=== PATIENT | female | born 1950 | race Caucasian/White ===

== ENCOUNTER → 2016-05-28 | Outpatient (CLI) | payer MEDICARE ==
[~2016-05-28] MED LIST: CALC600T19 PO; CEFD300C PO; CETI10TA20 PO; CPR500T PO; DOXY100C2 PO; FLUT9.9S NSEACH; HYDR-3702 PO; MAGN250T PO; MAGN800O PO; MULT1TAB63 PO; NAPR1TAB25 PO; NAPR220T76 PO; OMEG-7 PO; ONDA4TAB11 PO; ONDA4TAB8 PO; OXYC1TAB7 PO
[2016-05-28 12:17] LABS: MEAN CORPUSCULAR HEMOGLOBIN 29.7 PG (26.0-34.0); MEAN CORPUSCULAR HGB CONC 33.9 g/dL (31.0-37.0); MEAN CORPUSCULAR VOLUME 88 FL (80-100); MEAN PLATELET VOLUME 10.5 FL (6.0-9.5); PLATELET COUNT 90 10^3uL (150-450); WHITE BLOOD COUNT 5.85 10^3uL (4.0-11.0)
[2016-05-28 12:47] LABS: BAND NEUTROPHILS % 18 % (0-6); EOSINOPHILS % 2 % (0-4); LYMPHOCYTES # 1.3 #; MONOCYTES # 0.5 #; MONOCYTES % 10 % (3-11); SEGMENTED NEUTROPHILS % 48 % (51-67); TOTAL CELLS COUNTED 100
[2016-05-28 12:48] LABS: ALBUMIN 3.3 g/dL (3.4-5.0); ANION GAP 15.8 MEQ/L (3-15); ANISOCYTOSIS SLIGHT; CALCULATED IONIZED CALCIUM 4.7 mg/dL (3.8-4.6); MAGNESIUM* 1.9 mg/dL (1.6-2.3); MICROCYTOSIS SLIGHT; PHOSPHORUS 3.6 mg/dL (2.4-4.9); POIKILOCYTOSIS SLIGHT; RBC MORPH SEE REFERENCE (NORMAL); TOTAL PROTEIN 6.1 g/dL (6.4-8.5)
== END ==
LOC: RAD 11:56
PROVIDERS: ATTEND Internal Medicine Hematology & Oncology
DX: C34.2 Malignant neoplasm of middle lobe, bronchus or lung (principal)
CPT/HCPCS: 36415; 80053; 83615; 83735; 84100; 85007; 85027

== ENCOUNTER 2016-06-01 18:05 | Inpatient (IN) | payer MEDICARE ==
[~2016-06-01] VITALS: Ht 152.4 cm; Wt 63.9 kg
[~2016-06-01 18:05] MED LIST changes: -FLUT9.9S NSEACH; -MAGN800O PO; -NAPR1TAB25 PO; -NAPR220T76 PO; -OXYC1TAB7 PO
[2016-06-01] MEDS ORDERED: SODIUM CHLORIDE 250 ML IV PRN (18:40)
[2016-06-01] MEDS ORDERED: SODIUM CHLORIDE FLUSH 10 ML SYR IV PRN (18:40)
[2016-06-01] MEDS ORDERED: HYDROmorphone 1 MG/ML (DILAUDID) SYRINGE IV ONE (18:40)
[2016-06-01] MEDS ORDERED: NS IV 500 ML 500 ML IV SCH (18:40)
[2016-06-01] MEDS ORDERED: SODIUM CHLORIDE FLUSH 3 ML SYR IV PRN (18:40)
[2016-06-01] MEDS ORDERED: ONDANSETRON 2 MG/ML (Z0FRAN) 2 ML VIAL IV ONE (18:40)
[2016-06-01 19:05] LABS: MEAN CORPUSCULAR HGB CONC 33.3 g/dL (31.0-37.0); MEAN CORPUSCULAR VOLUME 87 FL (80-100); MEAN PLATELET VOLUME 10.5 FL (6.0-9.5); PLATELET COUNT 89 10^3uL (150-450)
[2016-06-01 19:11] LABS: ALBUMIN 3.2 g/dL (3.4-5.0); ALKALINE PHOSPHATASE 256 U/L (38-126); ANION GAP 14.2 MEQ/L (3-15); BUN/CREATININE RATIO 29 (10-20); CALCULATED IONIZED CALCIUM 4.4 mg/dL (3.8-4.6); CREATINE KINASE 77 U/L (30-135); MAGNESIUM* 2.1 mg/dL (1.6-2.3); TOTAL PROTEIN 6.4 g/dL (6.4-8.5)
[2016-06-01 19:14] LABS: BAND NEUTROPHILS % 16 % (0-6); EOSINOPHILS % 1 % (0-4); LYMPHOCYTES # 0.8 #; MONOCYTES # 0.4 #; MONOCYTES % 11 % (3-11); RBC MORPH NORMAL (NORMAL); SEGMENTED NEUTROPHILS % 46 % (51-67); TOTAL CELLS COUNTED 100
--- NOTE | 2016-06-01 20:46 | History and Physical (E) ---
History & Physical PCP: Duran Gutierrez MD CC: Weakness HPI Natty Thompson is a 66 year old female admitted from ED 06/01 where she presented from home for concern of weakness. She has quite complex recent medical history including perihilar lymphadenopathy on the right and pleural effusion and she is s/p CT-guided biopsy at [facility] in [place] . Pathology is still pending. She has been unwell since early April and his been undergoing outpatient oncology workup including the biopsy as noted. Has a had a PET scan but doesn't know those results. Was supposed to have MRI brain but didn't tolerate lying flat. Was brought to ED because of marked weakness. Vitals were notable for SpO2 88% RA so she was placed on oxygen. CBC showed WBC 4.10 but with 46% N, 16% B, 20% L, 11% M, 1% E, 1% B. Hgb was quite low at 7.2. Plt also low at 89. On chemistry, CRP high at 27. Pro-BNP 1590. CXR showed persistence of right pleural effusion. Pathology from biopsy is pending in [place]. She has seen Dr. Hood for outpatient oncology workup and is due to see him in clinic again 06/04. In ED she was sigven NS bolus, ondansetron, hydromorphone, then ED physician called asking for admit. She was awake, interactive, oriented. Pale. and patient provide history as outlined above. says weakness was the primary reason for bringing her to hospital. Several family members have had URI symptoms and patient has had some upper nasal congestion. Some cough, sometime productive of mucus. She has had no fever. No chills. No night sweats. No rash. PMH * UTI, April 2016 * Tobacco abuse * Chronic sinus congestion * OA * Pleural effusion PSH * Wrist surgery * Sinus surgery * T&A 1951 * Tubal ligation 1989 ALLERGIES: Please see list at end of report. HOME MEDICATIONS: Please see list at end of report. FH Parents--Mother of hepatitis C. Siblings--Brothers with heart problems, DM, and COPD. Children--Healthy. SH Tobacco--Current smoker, 1/2 ppd x 50 years. Alcohol--Denies Living--Lives at home with . 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 ROS CONSTITUTION: Lost 10 pounds in the last few weeks. HEENT: No change in vision or hearing. No sores in mouth, sore throat. Dry mouth. CV: No chest pain, palpitations. PULM: Per HPI, exam. GI: Poor appetite. Constipation. No diarrhea. : No dysuria. No blood in urine. MS: Complains of pain "all over." NEURO: Transient lower jaw numbness. INTEG: Pallor ENDO: No heat or cold intolerance. No polydipsia or polyuria. HEME/LYMPH: No easy bruising or bleeding. No swollen glands. PSYCH: No change in mood or behavior. OBJECTIVE Vital Signs Date Time Temp Pulse Resp B/P Pulse Ox O2 Delivery O2 Flow Rate FiO2 06/01/16 19:20 95 OxyMask 6 06/01/16 18:10 97.4 118 40 132/65 GEN: Awake, alert, oriented, mild respiratory distress. Pallor. HEENT: EOMI, clear sclerae, dry oral mucosa. CV: Mildly tachy, regular, ST on tele. LUNGS: Diminished right base. Faint, intermittent rales, right base. ABD: Soft, NT/ND with normal bowel sounds. EXTR: No C/C/E. Normal peripheral pulses. INTEG: Pallor NEURO: No focal motor neuro deficit. LABS Laboratory Results-14 Days 06/01/16 18:50: Absolute Band Neutrophils 0.6, Activated Partial Thromboplast Time 29.6, Alanine Aminotransferase (ALT/SGPT) 33, Albumin 3.2L, Albumin/Globulin Ratio 1.000L, Alkaline Phosphatase 256H, Anion Gap 14.2, Aspartate Amino Transf (AST/ SGOT) 55H, BUN/Creatinine Ratio 29H, Band Neutrophils % 16H, Basophils # (Auto) , Basophils # (Manual) 0.0, Basophils % (Manual) 1, Basophils (%) (Auto) , Blood Morphology Comment Normal, Blood Urea Nitrogen 21H, C-Reactive Protein 27.00H, Calcium Level 9.5, Calcium/Ionized Calcium Ratio 4.4, Calculated Osmolality 264L, Carbon Dioxide Level 24, Chloride Level 100, Creatine Kinase MB 1.3, Creatinine 0.73, Differential Total Cells Counted 100, Eosinophils # 0.0 , Eosinophils # (Auto) , Eosinophils % (Manual) 1, Eosinophils (%) (Auto) , Estimat Glomerular Filtration Rate 95.9, Estimated GFR (Non- 79.3, Glucose Level 148#H, Hematocrit 21.60L, Hemoglobin 7.2L, Lymphocytes # 0.8 , Lymphocytes # (Auto) , Lymphocytes % (Manual) 20, Lymphocytes (%) (Auto) , Magnesium Level 2.1, Mean Corpuscular Hemoglobin 29.0, Mean Corpuscular Hemoglobin Concent 33.3, Mean Corpuscular Volume 87, Mean Platelet Volume 10.5H , Metamyelocytes % 4H, Monocytes # 0.4, Monocytes # (Auto) , Monocytes % (Manual ) 11, Monocytes (%) (Auto) , Myelocytes 1, ET-Mxe-R-Type Natriuretic Peptide 1590H, Neutrophils # 1.9, Neutrophils # (Auto) , Neutrophils (%) (Auto) , Platelet Count 89L, Potassium Level 4.5, Prothromb Time International Ratio 1.4 , Prothrombin Time 15.5H, Red Blood Count 2.48L, Red Cell Distribution Width 13.4, Segmented Neutrophils % 46L, Sodium Level 134L, Total Bilirubin 0.9, Total Creatine Kinase 77, Total Protein 6.4, Troponin I < 0.012, White Blood Count 4.10 MICRO 06/01 Blood culture PENDING IMAGING 06/01/2016 CXR: Persistence of right pleural effusion with likely atelectasis, vs. infiltrate. ASSESSMENT Natty Thompson is a 66 year old female admitted from ED 06/01 with acute respiratory distress and SIRS/sepsis attributed to possible HCAP. She has marked anemia with fatigue and tachycardia noted. She has thrombocytopenia and low normal WBC and with right pleural effusion, there has been concern for underlying malignancy. She is already s/p CT-guided lung lymph node biopsy but results are pending. PLAN * SIRS/Sepsis: Attributed to possible HCAP. * Acute Respiratory Distress: Oxygen protocol. IS. Consider therapeutic thoracentesis. * HCAP: On the basis of cough, pleural effusion, dyspnea, bandemia, abnormal CXR. Blood culture pending. Sputum pending sample. IS. Guaifenesin. Empiric cefepime, vanco. * Right Pleural Effusion: S/P CT guided biopsy 05/30 at [place]. Obtain pathology. * Dehydration: On the basis of labs, exam. NS bolus given in ED. Additional 1 L maintenance. Check UA. I&O, daily weight. * Pancytopenia: Suspect cancer. Workup already in progress. Already referred to Dr. Hood and has appointment 06/04. * Anemia: Check stool for occult blood. Transfuse for symptomatic anemia. * Deconditioning: PT/OT eval and treat. * F/E/N: General diet. IVF as above. Peripheral IV. * Prophylaxis: SCDs. Defer enoxaparin due to anemia. * Code Status: Full * Dispo: Inpatient. Expect 3 day stay minimum. CHRONIC ISSUES Home medications to be reviewed: * Chronic Pain: [place] * Seasonal allergies: Loratadine (sub for cetirizine) * HLD: [place] 3 Allergies/Home Medications Allergies: Coded Allergies: cephalexin (Verified Allergy, Unknown, 05/13/16) Reported Home Medications Scheduled Calcium Carbonate (Calcium Carbonate) 600 MG PO HS (Reported) Cefdinir (Cefdinir) 300 MG PO BID Doxycycline Hyclate (Doxycycline Hyclate) 100 MG PO BID Magnesium (Magnesium) 250 MG PO HS (Reported) Multivits,Ca,Minerals/Iron/Fa (Thera-M) 1 TAB PO DAILY@1500 (Reported) [place]-3 Fatty Acids/Fish Oil (Fish Oil 1,000 mg Softgel) 1 CAP PO DAILY@1500 ( Reported) Ondansetron (Ondansetron ODT) 4 MG PO Q6H Scheduled PRN Cetirizine HCl (Zyrtec) 10 MG PO DAILY PRN PRN SEASONAL ALLERGIES (Reported) Hydrocodone Bit/Acetaminophen (Hydrocodon-Acetaminophen 5-325) 1-2 EACH PO Q6H PRN PRN PAIN Copies to: End of Report . OMID HUMMEL MD Jun 01, 2016 20:46
[2016-06-01] MEDS ORDERED: VANCOMYCIN 1,000 MG in SODIUM CHLORIDE 250 ML IV ONE (21:10)
[2016-06-01] MEDS ORDERED: MAGNESIUM HYDROXIDE 80MG/ML (MILK OF MAGNESIA) 30 ML UDC PO PRN (21:10)
[2016-06-01] MEDS ORDERED: SODIUM CHLORIDE 250 ML IV ONE (21:10)
[2016-06-01] MEDS ORDERED: CALCIUM CARBONATE CHEWABLE 300 MG (TUMS) TABLET PO PRN (21:10)
[2016-06-01] MEDS ORDERED: VANCOMYCIN PHARMACY PROTOCOL IV SCH ×2 (21:10)
[2016-06-01] MEDS ORDERED: PROMETHAZINE HCL INJ 12.5 MG in SODIUM CHLORIDE 25 ML IV PRN (21:10)
[2016-06-01] MEDS ORDERED: ACETAMINOPHEN 325 MG TAB (TYLENOL) PO PRN (21:10)
[2016-06-01] MEDS ORDERED: DOCUSATE SODIUM 100 MG (COLACE) CAP PO PRN (21:10)
[2016-06-01] MEDS ORDERED: IBUPROFEN 600 MG (MOTRIN) TAB PO PRN (21:10)
[2016-06-01] MEDS ORDERED: MAG HYDROX/AL HYDROX/SIMETH 200-200-20/5 ML (MAG-AL PLUS) 30 ML UDC PO PRN (21:10)
[2016-06-01] MEDS ORDERED: POLYETHYLENE GLYCOL 17 GM (MIRALAX) PACKET PO PRN (21:10)
[2016-06-01] MEDS ORDERED: ONDANSETRON 2 MG/ML (Z0FRAN) 2 ML VIAL IV PRN (21:10)
[2016-06-01] MEDS ORDERED: CEFEPIME 2,000 MG in SODIUM CHLORIDE 100 ML IV SCH (21:20)
--- NOTE | 2016-06-01 21:25 | NUR ---
Pt arrived to room 317 via wheelchair, accompanied by and PLATER HELPER. Pt is alert and oriented x 4, Resp are slightly labored and pt is using accessory muscles, currently on 6LPM via Mask to keep sats greater than 90%. SL to right backfiller has no redness, swelling, or s/s of infection noted at this time. Pt will be receiving blood when type and cross in done. Lab here to draw blood cultures. Pt is oriented to room, call light in reach, will continue to monitor,
[2016-06-01] MEDS ORDERED: SODIUM CHLORIDE 500 ML ONE (21:47)
[2016-06-01] MEDS ORDERED: PIPERACILLIN/TAZOBACTAM 4.5 GM (ZOSYN) VIAL IV ONE (21:47)
[2016-06-01] MEDS ORDERED: SODIUM CHLORIDE 100 ML ONE (21:48)
[2016-06-01] MEDS ORDERED: VANCOMYCIN 1000 MG VIAL ONE (21:48)
[2016-06-01 21:49] VITALS: BP 135/82
[2016-06-01] MEDS ORDERED: SODIUM CHLORIDE FLUSH 10 ML ONE (21:49)
[2016-06-01 21:55] VITALS: BP 135/82
[2016-06-01 22:00] LABS: BILIRUBIN,URINE Negative (Negative); CLARITY,URINE Cloudy; GLUCOSE, URINE (UA) Negative (Negative); LEUKOCYTE ESTERASE ,URINE Negative (Negative); PH,URINE 5.5 (5.0 - 8.0); UROBILINOGEN,URINE 0.2 mg/dL (0.2-1.0)
[2016-06-01] MEDS: PIPERACILLIN/TAZOBACTAM 4.5 GM in SODIUM CHLORIDE 100 ML IV SCH (22:00)
[2016-06-01 22:03] LABS: COLOR,URINE Dark Yellow
[2016-06-01 22:07] LABS: RBC,URINE None Seen /HPF; URINE CENTRIFUGED VOLUME 12 mL
[2016-06-02] VITALS (13 sets, daily range): BP systolic 115–134; BP diastolic 64–78
[2016-06-02] MEDS: HYDROcodone/APAP 5 MG/325 MG (NORCO) TAB PO PRN ×3 (02:45→18:38)
[2016-06-02] MEDS ORDERED: ACETAMINOPHEN 325 MG TAB (TYLENOL) PO PRN (03:10)
[2016-06-02] MEDS ORDERED: PROMETHAZINE HCL INJ 12.5 MG in SODIUM CHLORIDE 25 ML IV PRN (03:10)
[2016-06-02] MEDS ORDERED: MAG HYDROX/AL HYDROX/SIMETH 200-200-20/5 ML (MAG-AL PLUS) 30 ML UDC PO PRN (03:10)
[2016-06-02] MEDS ORDERED: ONDANSETRON 2 MG/ML (Z0FRAN) 2 ML VIAL IV PRN (03:10)
[2016-06-02] MEDS ORDERED: IBUPROFEN 600 MG (MOTRIN) TAB PO PRN (03:10)
--- NOTE | 2016-06-02 03:45 | NUR ---
0025-Started 2nd IV to LFA, 20g with minimal discomfort to pt. IV fluids and antibiotics started. 0100-Blood is started, checked blood with Tamanna Eric RN [id number]. 0115-Pt monitored every 5min for 15 min. No s/s of reaction noted at this time. Increased blood infusion to 150mls/hr. 0235-Pt up to restroom and reports generalized discomfort, rates 5/10, gave 1 tab PO of Lortab 5/325mg for pain. 0315-Blood is finished infusing, do not have second unit of blood in house. VS stayed WNL for pt, no s/s of reaction noted at this time. SL IV to [facility].
[2016-06-02] MEDS ORDERED: CALCIUM CARBONATE CHEWABLE 300 MG (TUMS) TABLET PO PRN (05:10)
[2016-06-02 06:30] LABS: MEAN CORPUSCULAR HEMOGLOBIN 29.3 PG (26.0-34.0); MEAN CORPUSCULAR HGB CONC 32.9 g/dL (31.0-37.0); MEAN CORPUSCULAR VOLUME 89 FL (80-100); MEAN PLATELET VOLUME 11.3 FL (6.0-9.5); PLATELET COUNT 79 10^3uL (150-450); WHITE BLOOD COUNT 3.54 10^3uL (4.0-11.0)
[2016-06-02] MEDS: PIPERACILLIN/TAZOBACTAM 4.5 GM in SODIUM CHLORIDE 100 ML IV SCH ×3 (06:30→21:32)
[2016-06-02 06:56] LABS: EOSINOPHILS % 4 % (0-4); LYMPHOCYTES # 0.8 #; MONOCYTES # 0.3 #; MONOCYTES % 11 % (3-11)
[2016-06-02 06:57] LABS: BAND NEUTROPHILS % 7 % (0-6); NUCLEATED RED BLOOD CELLS 1; POLYCHROMASIA SLIGHT; RBC MORPH SEE REFERENCE (NORMAL); SEGMENTED NEUTROPHILS % 51 % (51-67); TOTAL CELLS COUNTED 100
[2016-06-02 07:01] LABS: ALBUMIN 2.8 g/dL (3.4-5.0); ANION GAP 14.6 MEQ/L (3-15); PHOSPHORUS 4.4 mg/dL (2.4-4.9)
--- NOTE | 2016-06-02 08:09 | NUR ---
Pt titrated from 5L oxymask sats at 99% to 4L nc for bfst meal. Karlene RT notified. Will cont to monitor patient. Educated her to let nursing know MARTINE if increased SOA or difficulty breathing.
--- NOTE | 2016-06-02 08:11 | Diagnostic Imaging Report ---
INDICATION: Weakness. COMPARISON: May 30, 2016 TECHNIQUE: Single frontal radiograph of the chest dated June 01, 2016 FINDINGS: The cardiac silhouette is stable. Moderate right basilar pleural-parenchymal opacity is present, increased from the prior examination. Left lung is clear of focal pulmonary opacity. No significant left pleural effusion. No pneumothorax. No acute osseous abnormality. IMPRESSION: Increasing moderate sized right basilar pleural-parenchymal opacity, felt to relate a combination of pleural fluid with adjacent atelectasis or infiltrate. No pneumothorax. Dictated by: Dictated on workstation # [id number]
--- NOTE | 2016-06-02 08:54 | NUR ---
Finished eating bfst- remains on 4L nc sats at 96%- patient refuses to cont wearing nasal canula, requests oxymask for comfort- Is now on 4L oxymask sats 95%.
[2016-06-02] MEDS: guaiFENesin ER 600 MG (MUCINEX) TAB PO SCH ×2 (08:57→21:31)
[2016-06-02] MEDS: LORATADINE (CLARITIN) 10 MG TAB PO SCH (08:57)
[2016-06-02] MEDS ORDERED: POLYETHYLENE GLYCOL 17 GM (MIRALAX) PACKET PO PRN (09:00)
[2016-06-02] MEDS ORDERED: DOCUSATE SODIUM 100 MG (COLACE) CAP PO PRN (09:00)
[2016-06-02] MEDS ORDERED: guaiFENesin ER 600 MG (MUCINEX) TAB PO SCH (09:00)
[2016-06-02] MEDS ORDERED: MAGNESIUM HYDROXIDE 80MG/ML (MILK OF MAGNESIA) 30 ML UDC PO PRN (09:00)
[2016-06-02] MEDS ORDERED: CEFEPIME 2,000 MG in SODIUM CHLORIDE 100 ML IV SCH (09:00)
--- NOTE | 2016-06-02 09:21 | NUR ---
Vancomycin Dosing: Pharmacy managed S: SIRS/Sepsis: Attributed to possible HCAP pneumonia, UTI. Cultures pending. Empirically treating with Pip/Tazo (allergy to cephalexin) and vancomycin. O: 66y/o F, wt = 63 kg, SCr = 0.78 CrCl = 58 ml/min A/P: Vancomycin 1000mg IV q18hr. Predicted trough of 18.4 mcg/mL for therapeutic goal of 15-20mcg/ml. Trough to be drawn before 4th dose (06-04-16 @ 0430). Will monitor and adjust if needed.
[2016-06-02] MEDS ORDERED: ALBUTEROL 0.083% NEB SOLUTION 2.5 MG/3 ML VIAL INH PRN (12:00)
--- NOTE | 2016-06-02 12:21 | Progress Note (E) ---
Progress Note SUBJECTIVE Overnight, no major issues. Afebrile. Tachycardia mostly resolved. 4 L oxy- mask. BP stable. RR 20. WBC down to 3.54 with Hgb 8.0 after 1 unit transfused. K elevated at 5.3. No hemolysis noted. Giving a low dose of kayexalate. Discussed findings, plan of care. Hoping for thoracentesis tomorrow via radiology. OBJECTIVE Vital Signs Date Time Temp Pulse Resp B/P Pulse Ox O2 Delivery O2 Flow Rate FiO2 06/02/16 11:26 98.6 102 20 130/78 95 Oxymask 06/01/16 21:55 5.00 I & O 06/01/16 06/02/16 Cumulative From/Thru 19:00 07:00 06/01/16 18:10 - 06/02/16 06:11 Intake Total 1560 ml 1560 ml Output Total 500 ml 500 ml Balance 1060 ml 1060 ml GEN: Awake, alert, oriented, mild respiratory distress but improved. Pallor improved. HEENT: EOMI, clear sclerae, dry oral mucosa. CV: Mildly tachy, regular. No significant murmur. LUNGS: Diminished right base. Faint, intermittent rales have resolved. End- expiratory wheezes bilaterally. ABD: Soft, NT/ND with normal bowel sounds. EXTR: No C/C/E. Normal peripheral pulses. INTEG: Pallor NEURO: No focal motor neuro deficit. Lab-Past 14 Days, 35 Results 06/01/16 18:50: Absolute Band Neutrophils 0.6, Activated Partial Thromboplast Time 29.6, Alanine Aminotransferase (ALT/SGPT) 33, Albumin 3.2L, Albumin/Globulin Ratio 1.000L, Alkaline Phosphatase 256H, Anion Gap 14.2, Aspartate Amino Transf (AST/ SGOT) 55H, BUN/Creatinine Ratio 29H, Band Neutrophils % 16H, Basophils # (Auto) , Basophils # (Manual) 0.0, Basophils % (Manual) 1, Basophils (%) (Auto) , Blood Morphology Comment Normal, Blood Urea Nitrogen 21H, C-Reactive Protein 27.00H, Calcium Level 9.5, Calcium/Ionized Calcium Ratio 4.4, Calculated Osmolality 264L, Carbon Dioxide Level 24, Chloride Level 100, Creatine Kinase MB 1.3, Creatinine 0.73, Differential Total Cells Counted 100, Eosinophils # 0.0 , Eosinophils # (Auto) , Eosinophils % (Manual) 1, Eosinophils (%) (Auto) , Estimat Glomerular Filtration Rate 95.9, Estimated GFR (Non- 79.3, Glucose Level 148#H, Hematocrit 21.60L, Hemoglobin 7.2L, Lymphocytes # 0.8 , Lymphocytes # (Auto) , Lymphocytes % (Manual) 20, Lymphocytes (%) (Auto) , Magnesium Level 2.1, Mean Corpuscular Hemoglobin 29.0, Mean Corpuscular Hemoglobin Concent 33.3, Mean Corpuscular Volume 87, Mean Platelet Volume 10.5H , Metamyelocytes % 4H, Monocytes # 0.4, Monocytes # (Auto) , Monocytes % (Manual ) 11, Monocytes (%) (Auto) , Myelocytes 1, VD-Pfm-I-Type Natriuretic Peptide 1590H, Neutrophils # 1.9, Neutrophils # (Auto) , Neutrophils (%) (Auto) , Platelet Count 89L, Potassium Level 4.5, Prothromb Time International Ratio 1.4 , Prothrombin Time 15.5H, Red Blood Count 2.48L, Red Cell Distribution Width 13.4, Segmented Neutrophils % 46L, Sodium Level 134L, Thyroid Stimulating Hormone (TSH) 1.23, Total Bilirubin 0.9, Total Creatine Kinase 77, Total Protein 6.4, Troponin I < 0.012, White Blood Count 4.10 06/01/16 21:30: Urine Bacteria Rare, Urine Bilirubin Negative, Urine Clarity Cloudy, Urine Collection Type Clean catch, Urine Color Dark yellow, Urine Glucose (UA) Negative, Urine Ketones Negative, Urine Leukocyte Esterase Negative, Urine Mucus 3+H, Urine Nitrite Negative, Urine Protein 1+H, Urine RBC None seen, Urine RBC (Auto) Negative, Urine Specific [place] 1.025, Urine Squamous Epithelial Cells 20-50, Urine Urobilinogen 0.2, Urine WBC 0-2, Urine pH 5.5, Volume Urine Centrifuged 12 ml 06/02/16 06:00: Absolute Band Neutrophils 0.2, Band Neutrophils % 7H, Basophils # (Auto) , Basophils # (Manual) 0.1, Basophils % (Manual) 2, Basophils (%) (Auto) , Blood Morphology Comment See reference, Differential Total Cells Counted 100, Eosinophils # 0.1, Eosinophils # (Auto) , Eosinophils % (Manual) 4, Eosinophils (%) (Auto) , Hematocrit 24.30L, Hemoglobin 8.0L, Lymphocytes # 0.8, Lymphocytes # (Auto) , Lymphocytes % (Manual) 24, Lymphocytes (%) (Auto) , Mean Corpuscular Hemoglobin 29.3, Mean Corpuscular Hemoglobin Concent 32.9, Mean Corpuscular Volume 89, Mean Platelet Volume 11.3H, Metamyelocytes % 1, Monocytes # 0.3, Monocytes # (Auto) , Monocytes % (Manual) 11, Monocytes (%) (Auto) , Neutrophils # 1.8, Neutrophils # (Auto) , Neutrophils (%) (Auto) , Platelet Count 79L, Red Blood Count 2.73L, Red Cell Distribution Width 13.9, Segmented Neutrophils % 51, White Blood Count 3.54L, Nucleated Red Blood Cells 1, Polychromasia Slight 06/02/16 06:10: Albumin 2.8L, Anion Gap 14.6, Blood Urea Nitrogen 23H, Calcium Level 9.5, Carbon Dioxide Level 21L, Chloride Level 105, Creatinine 0.78, Estimat Glomerular Filtration Rate 88.9, Estimated GFR (Non- 73.5, Glucose Level 110#, Potassium Level 5.3H, Sodium Level 135, Phosphorus Level 4.4 # MICRO 06/01 Blood culture PENDING IMAGING 06/01/16 CHEST 1 VIEW, AP/PA ONLY* INDICATION: Weakness. COMPARISON: May 30, 2016 TECHNIQUE: Single frontal radiograph of the chest dated June 01, 2016 FINDINGS: The cardiac silhouette is stable. Moderate right basilar pleural- parenchymal opacity is present, increased from the prior examination. Left lung is clear of focal pulmonary opacity. No significant left pleural effusion. No pneumothorax. No acute osseous abnormality. IMPRESSION: Increasing moderate sized right basilar pleural-parenchymal opacity, felt to relate a combination of pleural fluid with adjacent atelectasis or infiltrate. No pneumothorax. ASSESSMENT Natty Thompson is a 66 year old female admitted from ED 06/01 with acute respiratory distress and SIRS/sepsis attributed to possible HCAP. She has marked anemia with fatigue and tachycardia noted. She has thrombocytopenia and low normal WBC and with right pleural effusion, there has been concern for underlying malignancy. She is already s/p CT-guided lung lymph node biopsy but results are pending. PLAN * SIRS/Sepsis: Attributed to possible HCAP. * Acute Respiratory Distress: Oxygen protocol. IS. * HCAP: On the basis of cough, pleural effusion, dyspnea, bandemia, abnormal CXR. Blood culture pending. Sputum pending sample. IS. Guaifenesin. Empiric pip- tazo, vanco. * Right Pleural Effusion: S/P CT guided biopsy 05/30 at [place]. Obtain pathology. Request diagnostic/therapeutic thoracentesis by radiology here 06/03 if radiologist available. * Dehydration: On the basis of labs, exam. NS bolus given in ED. Additional 1 L maintenance. Check UA. I&O, daily weight. * Pancytopenia: Suspect hematologic malignancy. Workup already in progress. Already referred to Dr. Hood and has appointment 06/04. Notify clinic of this admission and discuss with Dr. Hood if he's available 06/03. * Anemia: Hgb on admit 7.2. Check stool for occult blood. Transfused 1 unit for symptomatic anemia and Hgb < 8. * Deconditioning: PT/OT eval and treat. * F/E/N: General diet. IVF as above. Peripheral IV. * Prophylaxis: SCDs. Defer enoxaparin due to anemia. * Code Status: Full * Dispo: Inpatient. Expect 3 day stay minimum. CHRONIC ISSUES * Chronic Pain: [place] * Seasonal allergies: Loratadine (sub for cetirizine) * HLD: [place] 3 OMID HUMMEL MD Jun 02, 2016 12:02
[2016-06-02] MEDS ORDERED: SODIUM POLYSTERENE SULF SUSP 15 GM/60 ML (KAYEXALATE) BTL PO ONE (12:30)
[2016-06-02] MEDS ORDERED: FLUT9.9S NSEACH (12:48)
[2016-06-02] MEDS ORDERED: NAPR220T76 PO (12:48)
[2016-06-02] MEDS ORDERED: MAGN800O PO (12:48)
[2016-06-02] MEDS ORDERED: NAPR1TAB25 PO (12:48)
[2016-06-02] MEDS ORDERED: OXYC1TAB7 PO (12:48)
[2016-06-02] MEDS ORDERED: ONDA4TAB8 PO (12:48)
--- NOTE | 2016-06-02 12:50 | NUR ---
MED REC COMPLETED-current med list obtained from Ext Med History application and patient interview.
--- NOTE | 2016-06-02 13:37 | Progress Note (E) ---
Progress Note Radiologist scheduled to be here 06/03 willing to do thoracentesis. All thoracentesis labs ordered. Consent form signed by patient and placed on hard chart. Notified RN to make patient NPO after 0200 as a precaution. OMID HUMMEL MD Jun 02, 2016 13:37
[2016-06-02] MEDS: OMEGA-3 FATTY ACIDS (FISH OIL) 500 MG CAPSULE PO SCH (14:08)
[2016-06-02] MEDS: MULTIVITAMIN W/MINERALS (THERAGRAN M) TABLET PO SCH (14:08)
[2016-06-02] MEDS: ALBUTEROL/IPRATROPIUM 3MG-0.5MG/3ML (DUONEB) NEB VIAL INH SCH ×2 (14:53→20:08)
[2016-06-02] MEDS ORDERED: SODIUM CHLORIDE 100 ML ONE (18:25)
[2016-06-02] MEDS: VANCOMYCIN 1,000 MG in SODIUM CHLORIDE 250 ML IV SCH (18:33)
--- NOTE | 2016-06-02 18:38 | NUR ---
PRN [place] given at this time for c/o pain rated 6/10. Pt denies other needs. Family at bedside.
[2016-06-02] MEDS ORDERED: SODIUM CHLORIDE FLUSH 3 ML SYR IV PRN (18:40)
[2016-06-02] MEDS ORDERED: SODIUM CHLORIDE FLUSH 10 ML SYR IV PRN (18:40)
[2016-06-02] MEDS ORDERED: SODIUM CHLORIDE 250 ML IV PRN (18:40)
--- NOTE | 2016-06-02 20:11 | NUR ---
Pt found on 4 l/min OM, SPO2 94%, HR 110, BS fine crackles except RML and RLL which were nearly absent. Duoneb given via SVN tolerated well with no complications, BS unchanged post TX.
--- NOTE | 2016-06-02 20:20 | NUR ---
Care assumed. Pt resting in bed receiving breathing treatment from RT. Cooeprative with assessment. Denies needs at this time. Call light in reach.
[2016-06-02] MEDS ORDERED: SODIUM CHLORIDE 250 ML IV ONE (21:10)
[2016-06-02] MEDS ORDERED: VANCOMYCIN PHARMACY PROTOCOL IV SCH ×2 (21:10)
[2016-06-02] MEDS ORDERED: VANCOMYCIN 1,000 MG in SODIUM CHLORIDE 250 ML IV ONE (21:10)
[2016-06-02] MEDS: MAGNESIUM OXIDE 400 MG (MAG-OX) TAB PO SCH (21:31)
--- NOTE | 2016-06-02 21:37 | NUR ---
Pt took evening meds without difficulty. IV Zosyn infusing at this time. No other needs. Call light in reach.
[2016-06-03] VITALS (14 sets, daily range): BP systolic 116–149; BP diastolic 67–91
--- NOTE | 2016-06-03 00:10 | NUR ---
Pt resting quietly. No needs at this time.
[2016-06-03] MEDS: HYDROcodone/APAP 5 MG/325 MG (NORCO) TAB PO PRN ×2 (02:47→14:57)
[2016-06-03] MEDS: PIPERACILLIN/TAZOBACTAM 4.5 GM in SODIUM CHLORIDE 100 ML IV SCH ×3 (05:45→22:00)
--- NOTE | 2016-06-03 05:54 | NUR ---
Pt awake, resting in bed. Denies needs at this time. Zosyn antibiotic infusing now. Pt has been down to xray already and has returned. Call light in reach. Pt on O2 on 5L per oxymask.
[2016-06-03 06:19] LABS: MEAN CORPUSCULAR HEMOGLOBIN 29.5 PG (26.0-34.0); MEAN CORPUSCULAR HGB CONC 33.3 g/dL (31.0-37.0); MEAN CORPUSCULAR VOLUME 89 FL (80-100); MEAN PLATELET VOLUME 10.9 FL (6.0-9.5); PLATELET COUNT 71 10^3uL (150-450); WHITE BLOOD COUNT 3.53 10^3uL (4.0-11.0)
[2016-06-03 06:26] LABS: ANISOCYTOSIS SLIGHT; BAND NEUTROPHILS % 5 % (0-6); EOSINOPHILS % 2 % (0-4); HYPOCHROMASIA SLIGHT; LYMPHOCYTES # 1.2 #; MONOCYTES # 0.1 #; MONOCYTES % 4 % (3-11); RBC MORPH SEE REFERENCE (NORMAL); SEGMENTED NEUTROPHILS % 55 % (51-67); TOTAL CELLS COUNTED 100
[2016-06-03 06:56] LABS: ALBUMIN 2.7 g/dL (3.4-5.0); CALCULATED IONIZED CALCIUM 4.5 mg/dL (3.8-4.6); TOTAL PROTEIN 5.8 g/dL (6.4-8.5)
[2016-06-03] MEDS: ALBUTEROL/IPRATROPIUM 3MG-0.5MG/3ML (DUONEB) NEB VIAL INH SCH ×4 (07:35→20:11)
[2016-06-03] MEDS ORDERED: HYDROmorphone 2 MG/ML (DILAUDID) 1 ML SYRINGE IV PRN (07:50)
--- NOTE | 2016-06-03 07:55 | NUR ---
Pt requests pain meds- states she is in extreme pain in lower back and hips- NPO for THoracentesis- Dr. Scott gave TORB for Dilaudid 1-2mg IV Q2H prn - gave 2mg Dilaudid IV now.
--- NOTE | 2016-06-03 08:06 | Diagnostic Imaging Report ---
Clinical indication: Patient with pleural effusion, HCAP. Exam: Chest x-ray PA and lateral views. Comparison: Chest x-ray dated 06/01/2016. Findings: Again seen moderate sized right pleural effusion. There is improved aeration of the right lung with continued patchy airspace opacities in right midlung field and consolidation in the right lung base. There is stable mild left lung base atelectasis or scarring. Otherwise, the left lung is clear. Pulmonary vasculature appears mildly congested. Cardiac silhouette is partially obscured. The remainder of this exam shows no significant interval change compared to the prior study of comparison. Impression: 1: Stable at least moderate right pleural effusion. 2: There is improved aeration of the right lung field with continued right midlung field right basilar atelectasis versus infiltrate. 3: The remainder of this exam shows no significant interval change compared to the prior study of comparison. Dictated by: Dictated on workstation # [id number]
--- NOTE | 2016-06-03 08:10 | NUR ---
Blood administration start at this time via filter tubing on pump @100ml/hr.
--- NOTE | 2016-06-03 08:27 | NUR ---
Increased blood infusion rate to 125ml/hr at this time. will cont to monitor. VSS as of now- will take again in 45min.
--- NOTE | 2016-06-03 09:07 | NUR ---
Increased blood infusion to 150ml/hr at this time. IV site without redness/swelling. Pt resting between VS.
--- NOTE | 2016-06-03 09:33 | NUR ---
NUTRITION ASSESSMENT Level 1 Patient: Natty Thompson Age/Sex: 66/F Date Screened: 06-03-16 Weight: 139.7#/63.5 kg Height: 60 inches Primary Diagnosis: anemia Diet Order: regular Relevant labs: glucose 117, Hgb 7.5, Hct 22.50 Food allergies: N Nutrition Assessment Criteria Age over 80: N Body Mass Index (BMI) under 19: N Admission Screening Indicates Risk? 6 points Moderate/High Risk Diagnosis: 3 points TPN or PPN: N NPO or clear liquid diet: N Serum Glucose <70 or >180: N Hgb A1c >6.7: N/A Total: 9 points Risk Screen: __ Patient at low nutritional risk based on available data; reevaluate in 5-7 days __ Patient at moderate nutritional risk based on available data; reevaluate in 3-5 days _X_ Patient at high nutritional risk; complete Nutrition Assessment within 48 hours of admission.
--- NOTE | 2016-06-03 09:55 | NUR ---
Pt c/o nausea- Zofran 4mg IV given as ordered now. VSS- no changes during blood infusion. Pt states "I am so hungry, I think that's making me nauseous." Will cont to monitor pt.
[2016-06-03] MEDS: VANCOMYCIN 1,000 MG in SODIUM CHLORIDE 250 ML IV SCH (10:08)
--- NOTE | 2016-06-03 10:25 | NUR ---
Blood infusion complete- no reactions. VSS. Pt denies needs at this time.
--- NOTE | 2016-06-03 10:49 | NUR ---
Dr. James at bedside.
--- NOTE | 2016-06-03 12:41 | NUR ---
MULTIDISCIPLINARY MTG/DR. NETTLES: Pt. had one unit of blood transfused today. Pt. was complaining of nausea but attributes this to hunger. Pt. to have a thoracentesis today between 11-12:30. Pt. is on 4L NC but prefers the oxymask for comfort. No discharge plans identified at this time.
--- NOTE | 2016-06-03 13:13 | Progress Note-A/P (E) ---
Progress Note Subjective: Patient is resting in bed. Somewhat dyspneic and very thirsty. She reports pain , but this is baseline for her. Discussed current care and plan. Objective: Current Medications Acetaminophen/ Hydrocodone 5 Mg/325 Mg 1 tab Q6H PRN PO Multivitamins/ Minerals Therapeutic 1 ea DAILY@1500 PO Loratadine 10 mg DAILY PO Magnesium Oxide 400 mg HS PO Fish Oil 1000 mg DAILY@15 PO Promethazine Q6H PRN IV Calcium Carbonate 300 mg Q8H PRN PO Docusate 100 mg BID PRN PO Ibuprofen 600 mg Q6H PRN PO Magnesium Hydroxide 30 ml DAILY PRN PO Al Hydrox/Mg Hydrox/Simethicone 30 ml Q6H PRN PO Ondansetron 4 mg Q6H PRN IV Polyethylene Glycol 17 gm DAILY PRN PO Acetaminophen 650 mg Q6H PRN PO Guaifenesin 1,200 mg BID PO Piperacillin/Tazobactam 4.5 gm Q8HR IV Vancomycin Q18H IV Albuterol/ Ipratropium 3 ml RTQID INH Albuterol Sulfate 0.083% Neb Solution 2.5 mg Q4H PRN INH Hydromorphone 2 mg Q2HR PRN IV Vital Signs Date Time Temp Pulse Resp B/P Pulse Ox O2 Delivery O2 Flow Rate FiO2 06/03/16 10:26 98.2 95 16 94 Nasal cannula 06/03/16 08:00 138/76 06/01/16 21:55 5.00 I & O Past 24 hrs 06/03/16 07:00 Intake Total 2788 ml Output Total 1200 ml Balance 1588 ml Intake Oral 1384 ml IV Total 1404 ml Output Urine Total 1200 ml # Bowel Movements 1 Physical Exam General--Awake and alert. No distress. HEENT--Normocephalic. MMM in oral cavity. Nasal cannula in place. Lungs--Clear to auscultation in left lung, right lung diminished. Nonlabored respirations. Heart--RRR. Abdomen--Normal bowel sounds. Soft. Nondistended. Nontender. Extremities--No edema to lower extremities. Past 24 hour Lab Results 06/03/16 05:45 Laboratory Results Past 24 Hrs 06/03/16 05:45: Absolute Band Neutrophils 0.2, Alanine Aminotransferase (ALT/SGPT) 31, Albumin 2.7, Albumin/Globulin Ratio 0.870, Alkaline Phosphatase 213, Anion Gap 13.0, Anisocytosis Slight, Aspartate Amino Transf (AST/SGOT) 51, BUN/Creatinine Ratio 25, Band Neutrophils % 5, Basophils # (Auto) , Basophils # (Manual) 0.0, Basophils % (Manual) 0, Basophils (%) (Auto) , Blood Morphology Comment See reference, Blood Urea Nitrogen 17, C-Reactive Protein 39.80, Calcium Level 9.1, Calcium/Ionized Calcium Ratio 4.5, Calculated Osmolality 267, Carbon Dioxide Level 26, Chloride Level 102, Creatinine 0.67, Differential Total Cells Counted 100, Eosinophils # 0.1, Eosinophils # (Auto) , Eosinophils % (Manual) 2, Eosinophils (%) (Auto) , Estimat Glomerular Filtration Rate 105.9, Estimated GFR (Non- 87.5, Glucose Level 117, Hematocrit 22.50, Hemoglobin 7.5, Hypochromasia Slight, Lactate Dehydrogenase 4369, Lymphocytes # 1.2, Lymphocytes # (Auto) , Lymphocytes % (Manual) 34, Lymphocytes (%) (Auto) , Magnesium Level 2.0, Mean Corpuscular Hemoglobin 29.5, Mean Corpuscular Hemoglobin Concent 33.3, Mean Corpuscular Volume 89, Mean Platelet Volume 10.9, Metamyelocytes % 0, Monocytes # 0.1, Monocytes # (Auto) , Monocytes % (Manual) 4 , Monocytes (%) (Auto) , Neutrophils # 1.9, Neutrophils # (Auto) , Neutrophils ( %) (Auto) , Platelet Count 71, Potassium Level 3.9, Prothromb Time International Ratio 1.4, Prothrombin Time 15.4, Red Blood Count 2.54, Red Cell Distribution Width 13.7, Segmented Neutrophils % 55, Sodium Level 137, Total Bilirubin 0.8, Total Protein 5.8, White Blood Count 3.53 Microbiology 06/01/16 Blood Culture - Preliminary, Resulted No Growth in 24 hours Imaging Results CXR 06.01.16 IMPRESSION: Increasing moderate sized right basilar pleural-parenchymal opacity, felt to relate a combination of pleural fluid with adjacent atelectasis or infiltrate. No pneumothorax. CXR 06.03.16 Impression: 1: Stable at least moderate right pleural effusion. 2: There is improved aeration of the right lung field with continued right midlung field right basilar atelectasis versus infiltrate. 3: The remainder of this exam shows no significant interval change compared to the prior study of comparison. Assessment/Plan Sepsis Criteria met with tachycardia, tachypnea, and bandemia. Attributed to HAP. VS's improving. Continue treatment below. Acute hypoxic respiratory failure. Not on oxygen at home. Currently on 4 L per NC. Therapeutic thoracentesis ordered for today, look for improvement in respiratory status. HAP Evidenced by CXR, hypoxia, bandemia, and cough. BC's negative at 24 hours. Empiric treatment with pip/tazo and vancomycin. Pleural effusion CT guided biopsy performed on 05.30.16 at [facility] in [place]. Therapeutic/diagnostic thoracentesis scheduled for today. Anemia 7.2 on admission. Up to 8.0 after a unit transfusion. Back down to 7.5 today, transfusing again today. LDH is significantly elevated, obtaining a dir/indir bili, haptoglobin, reticulocyte count, as well as a hemoccult. Pancytopenia Unclear etiology. Monitoring hgb noted above. Plt's have been chronic. Leukopenia is new. Chronic pain On home norco dosing. Seasonal allergies Continue home dose of H2 cat. DLD Continue home omega 3. Dehydration Evidenced by BUN. NS bolus given in the ED, 1L maintenance given on floor. FEN Fluids provided as noted above. Electrolytes are currently normal. NPO until after thoracentesis. DVT proph SCD's. Code status Full code. Dispo Inpatient for above noted issues. Continue to wean oxygen, monitor blood cultures, treat with abx. Thoracentesis today, hope for improvement in respiratory status after this. Continue to monitor hgb closely and results from anemia work up. AMELIA NETTLES MD Jun 03, 2016 13:13
--- NOTE | 2016-06-03 13:40 | NUR ---
Radiology in room for Thoracentesis.
--- NOTE | 2016-06-03 13:58 | NUR ---
Thoracentesis complete- scada technician states approx 1100ml removed during Thoracentesis.
[2016-06-03] MEDS: MULTIVITAMIN W/MINERALS (THERAGRAN M) TABLET PO SCH (14:11)
[2016-06-03] MEDS: OMEGA-3 FATTY ACIDS (FISH OIL) 500 MG CAPSULE PO SCH (14:11)
[2016-06-03] MEDS: guaiFENesin ER 600 MG (MUCINEX) TAB PO SCH ×2 (14:11→20:58)
[2016-06-03] MEDS: LORATADINE (CLARITIN) 10 MG TAB PO SCH (14:11)
--- NOTE | 2016-06-03 14:30 | Diagnostic Imaging Report ---
INDICATION: Right-sided thoracentesis, recent right lung biopsy. Shortness of breath, pleural effusion. EXAMINATION: Ultrasound-guided thoracentesis on the right 06/03/2016. FINDINGS: Informed consent was obtained from the patient. The right chest posteriorly was evaluated sonographically. Fluid pocket was localized. The skin was then marked. The skin was then cleaned and draped in sterile technique with 1% lidocaine used to anesthetize the skin and the subcutaneous soft tissues. A small davidson was then made in the skin. Pleura-Seal thoracentesis catheter was then placed into the effusion. 1100 cc of yellow tinged fluid was returned. Post thoracentesis sonogram demonstrated no significant residual fluid. Patient tolerated the procedure well with no immediate complications. A post thoracentesis frontal view of the chest was performed. In comparison to chest x-ray dated 06/03/2016, 5:08 a.m., the amount of pleural fluid on the right has decreased. Some residual is noted. There is diffuse infiltrate or atelectasis throughout the right mid and lower lung. The underlying mass is also noted. A very small left effusion is also seen. Heart is prominent. Pulmonary vasculature is mildly congested. No post procedure pneumothorax is appreciated. IMPRESSION: Uncomplicated ultrasound-guided right chest thoracentesis. Post thoracentesis chest x-ray as discussed above with no pneumothorax visualized. Dictated by: Dictated on workstation # [id number]
[2016-06-03 14:35] LABS: TOTAL PROTEIN,BODY FLUID 2.8 G/DL
--- NOTE | 2016-06-03 14:59 | NUR ---
Karlene RT in room for treatment- Pt given [place] at this time to "stay ahead of pain"- Pt states she can breathe much easier after Thoracentesis.
[2016-06-03 15:07] LABS: BODY FLUID APPEARENCE SLT CLDY; BODY FLUID COLOR YELLOW
[2016-06-03 15:08] LABS: BODY FLUID RBC COUNT 1483 /uL; BODY FLUID WBC TOTAL COUNT 1108 /uL
--- NOTE | 2016-06-03 20:14 | NUR ---
Pt found lying in bed, SPO2 92% on 4 l/min NC, HR 109, RR 20 and mildly labored with clear BS upper lobes and lower left, diminished in right middle and lower lobe before and after Duoneb via SVN. Switched to OxiMask @ 4 l/min for Pt comfort while sleeping.
[2016-06-03] MEDS: MAGNESIUM OXIDE 400 MG (MAG-OX) TAB PO SCH (20:59)
[2016-06-04 03:58] VITALS: BP 136/81
[2016-06-04] MEDS: VANCOMYCIN 1,000 MG in SODIUM CHLORIDE 250 ML IV SCH (05:25)
[2016-06-04 06:03] LABS: MEAN CORPUSCULAR HEMOGLOBIN 28.4 PG (26.0-34.0); MEAN CORPUSCULAR HGB CONC 33.5 g/dL (31.0-37.0); MEAN CORPUSCULAR VOLUME 85 FL (80-100); MEAN PLATELET VOLUME 10.7 FL (6.0-9.5); PLATELET COUNT 67 10^3uL (150-450); WHITE BLOOD COUNT 4.44 10^3uL (4.0-11.0)
--- NOTE | 2016-06-04 06:10 | NUR ---
Pt rests in long intervals throughout the night. Occasionally appears anxious. Cont on 4L oxygen per oxymask. Antibiotics infusing w/o difficulty.
[2016-06-04 06:13] LABS: BAND NEUTROPHILS % 6 % (0-6); LYMPHOCYTES # 1.1 #; SEGMENTED NEUTROPHILS % 60 % (51-67)
[2016-06-04 06:14] LABS: ANISOCYTOSIS SLIGHT; EOSINOPHILS % 2 % (0-4); HYPOCHROMASIA SLIGHT; MONOCYTES # 0.2 #; MONOCYTES % 6 % (3-11); NUCLEATED RED BLOOD CELLS 1; POLYCHROMASIA SLIGHT; RBC MORPH SEE REFERENCE (NORMAL); TOTAL CELLS COUNTED 100
[2016-06-04 06:48] LABS: ALBUMIN 2.5 g/dL (3.4-5.0); ANION GAP 10.1 MEQ/L (3-15); MAGNESIUM* 1.9 mg/dL (1.6-2.3); PHOSPHORUS 3.9 mg/dL (2.4-4.9)
[2016-06-04] MEDS: PIPERACILLIN/TAZOBACTAM 4.5 GM in SODIUM CHLORIDE 100 ML IV SCH ×2 (07:25→15:32)
[2016-06-04] MEDS: ALBUTEROL/IPRATROPIUM 3MG-0.5MG/3ML (DUONEB) NEB VIAL INH SCH ×3 (07:49→14:29)
[2016-06-04 08:00] VITALS: BP 151/87
[2016-06-04] MEDS: guaiFENesin ER 600 MG (MUCINEX) TAB PO SCH (08:24)
[2016-06-04] MEDS: LORATADINE (CLARITIN) 10 MG TAB PO SCH (08:24)
[2016-06-04] MEDS: HYDROcodone/APAP 5 MG/325 MG (NORCO) TAB PO PRN ×2 (08:26→16:31)
--- NOTE | 2016-06-04 08:30 | NUR ---
Pt sitting up in chair. Skin warm, dry, intact. Resprs nonlabored, even on 4L NC. Pt states she is very tired and weak this morning. Pt slow to move. Rates pain "6/10 and climbing". PRN [place] provided at this time. IV Zosyn infusing. Denies other needs.
--- NOTE | 2016-06-04 08:57 | NUR ---
NUTRITION ASSESSMENT Level II Patient: Natty Thompson Age/Sex: 66/F Date Assessed: 06-04-16 ASSESSMENT Pertinent History: Patient admitted with anemia and screened at high nutritional risk secondary to feeling unwell over the past month with weakness, poor appetite and weight loss. PMHx includes recent lymphadenopathy and pleural effusion with biopsy in [place] on 05-30. Pathology showed lung cancer; she has appt. with oncology today. Pt. weighed 151# 04-27-16 and 147# 04-28-16. Meds/Nutrition: Mag Ox, Fish Oil, MVI Weight: 140.5#/63.9 kg Height: 60 inches Body Mass Index (BMI): 27.5 [place] Body Weight : 100#/45.4 kg % IBW: 140% GASTROINTESTINAL Appetite: stated poor, but eating 50-75% Diet Order: regular Unintentional loss of >10 lbs. in 3 months: Yes Difficult to chew/swallow: N Diabetes: N Relevant Labs: glucose 117 Calculations for Nutritional Assessment Estimated calorie needs: 28-30 kcals/kg = 1,760-1,890 kcals Estimated protein needs: 1.0-1.3 g/kg = 63-81 g./day DIAGNOSIS 1. Nutrition Diagnosis: Unintentional weight loss related to inadequate intake and catabolic disease state as evidenced by 10.5# weight loss (6.9%) in the past 4 weeks with poor appetite and newly diagnosed lung cancer. NUTRITIONAL INTERVENTION Goal: Patient will receive adequate nutrition to meet her needs and maintain lean body mass as much as possible. Plan: Will provide regular diet as ordered; smaller portions may be helpful with supplemental protein shakes between meals for additional kcals/protein. Will monitor intake for adequacy and alter nutrition intervention as needed to best meet her needs. MONITORING & EVALUATION _X_ Monitor patients menu selections _X_ Monitor patients food intake per nursing notes __ Monitor NPO/clear liquid days __ Monitor lab values __ Monitor I&O _X_ Other--monitor weight
--- NOTE | 2016-06-04 09:00 | Progress Note-A/P (E) ---
Progress Note Subjective: Patient is resting in bed. She states she is breathing easier. She is very fatigued. Discussed current findings. Questions answered. Objective: Current Medications Acetaminophen/ Hydrocodone 5 Mg/325 Mg 1 tab Q6H PRN PO Multivitamins/ Minerals Therapeutic 1 ea DAILY@1500 PO Loratadine 10 mg DAILY PO Magnesium Oxide 400 mg HS PO Fish Oil 1000 mg DAILY@15 PO Promethazine Q6H PRN IV Calcium Carbonate 300 mg Q8H PRN PO Docusate 100 mg BID PRN PO Ibuprofen 600 mg Q6H PRN PO Magnesium Hydroxide 30 ml DAILY PRN PO Al Hydrox/Mg Hydrox/Simethicone 30 ml Q6H PRN PO Ondansetron 4 mg Q6H PRN IV Polyethylene Glycol 17 gm DAILY PRN PO Acetaminophen 650 mg Q6H PRN PO Guaifenesin 1,200 mg BID PO Piperacillin/Tazobactam 4.5 gm Q8HR IV Vancomycin Q18H IV Albuterol/ Ipratropium 3 ml RTQID INH Albuterol Sulfate 0.083% Neb Solution 2.5 mg Q4H PRN INH Hydromorphone 2 mg Q2HR PRN IV Vital Signs Date Time Temp Pulse Resp B/P Pulse Ox O2 Delivery O2 Flow Rate FiO2 06/04/16 08:00 97.9 113 22 151/87 96 Nasal cannula 06/01/16 21:55 5.00 I & O Past 24 hrs 06/04/16 07:00 Intake Total 1320 ml Output Total 525 ml Balance 795 ml Intake Oral 600 ml IV Total 410 ml Blood Product 310 ml Output Urine Total 525 ml Physical Exam General--Awake and alert. No distress. HEENT--Normocephalic. MMM in oral cavity. Nasal cannula in place. Lungs--Clear to auscultation in left lung, right lung diminished. Nonlabored respirations. Heart--RRR. Abdomen--Normal bowel sounds. Soft. Nondistended. Nontender. Extremities--No edema to lower extremities. Past 24 hour Lab Results 06/03/16 20:52 06/04/16 05:50 Laboratory Results Past 24 Hrs 06/03/16 13:55: Body Fluid Appearance Slt cldy, Body Fluid Color Yellow, Body Fluid Mononuclear WBCs 88, Body Fluid Polynuclear WBCs 13, Body Fluid RBC 1483, Body Fluid Source [place], Body Fluid Total Protein 2.8, Body Fluid WBC 1108, Lactate Dehydrogenase 2832 06/03/16 20:52: Hemoglobin 9.1 06/04/16 04:28: Vancomycin Level Trough 6.4 06/04/16 05:50: Hemoglobin 8.4, Absolute Band Neutrophils 0.2, Albumin 2.5, Anion Gap 10.1, Anisocytosis Slight, Band Neutrophils % 6, Basophils # (Auto) , Basophils # ( Manual) 0.0, Basophils % (Manual) 0, Basophils (%) (Auto) , Blood Morphology Comment See reference, Blood Urea Nitrogen 13, Calcium Level 9.0, Carbon Dioxide Level 27, Chloride Level 102, Creatinine 0.62, Differential Total Cells Counted 100, Eosinophils # 0.1, Eosinophils # (Auto) , Eosinophils % (Manual) 2 , Eosinophils (%) (Auto) , Estimat Glomerular Filtration Rate 115.8, Estimated GFR (Non- 95.7, Glucose Level 117, Hematocrit 25.10, Hypochromasia Slight, Lymphocytes # 1.1, Lymphocytes # (Auto) , Lymphocytes % ( Manual) 26, Lymphocytes (%) (Auto) , Magnesium Level 1.9, Mean Corpuscular Hemoglobin 28.4, Mean Corpuscular Hemoglobin Concent 33.5, Mean Corpuscular Volume 85, Mean Platelet Volume 10.7, Metamyelocytes % 0, Monocytes # 0.2, Monocytes # (Auto) , Monocytes % (Manual) 6, Monocytes (%) (Auto) , Neutrophils # 2.7, Neutrophils # (Auto) , Neutrophils (%) (Auto) , Nucleated Red Blood Cells 1, Phosphorus Level 3.9, Platelet Count 67, Polychromasia Slight, Potassium Level 3.7, Red Blood Count 2.96, Red Cell Distribution Width 16.0, Segmented Neutrophils % 60, Sodium Level 135, White Blood Count 4.44 Microbiology 06/01/16 Blood Culture - Preliminary, Resulted No Growth in 48 hours Imaging Results CXR 06.01.16 IMPRESSION: Increasing moderate sized right basilar pleural-parenchymal opacity, felt to relate a combination of pleural fluid with adjacent atelectasis or infiltrate. No pneumothorax. CXR 06.03.16 Impression: 1: Stable at least moderate right pleural effusion. 2: There is improved aeration of the right lung field with continued right midlung field right basilar atelectasis versus infiltrate. 3: The remainder of this exam shows no significant interval change compared to the prior study of comparison. Assessment/Plan Sepsis Criteria met with tachycardia and tachypnea. Persists. Attributed to HAP. VS's improving. Continue treatment below. Acute hypoxic respiratory failure. Not on oxygen at home. Currently on 4 L per NC. Therapeutic thoracentesis yesterday with significant improvement in respiratory status. HAP Evidenced by CXR, hypoxia, bandemia, and cough. BC's negative at 48 hours. Continue empiric treatment with pip/tazo and vancomycin. Pleural effusion CT guided biopsy performed on 05.30.16 at [facility] in [place]. Therapeutic thoracentesis 06.03.16 Anemia 7.2 on admission. 8.4 after two units of blood. LDH is significantly elevated, haptoglobin high, not supporting hemolysis. Pancytopenia Unclear etiology. Monitoring hgb noted above. Plt's have been chronic. Leukopenia is new and improving slightly. Chronic pain On home norco dosing. Seasonal allergies Continue home dose of H2 cat. DLD Continue home omega 3. Dehydration Evidenced by BUN. NS bolus given in the ED, 1L maintenance given on floor. FEN Fluids provided as noted above. Electrolytes are currently normal. NPO until after thoracentesis. DVT proph SCD's. Code status Full code. Dispo Inpatient for above noted issues. Continue to wean oxygen, monitor blood cultures, treat with abx. Awaiting final path report and care plan from Dr. Hood. AMELIA NETTLES MD Jun 04, 2016 09:00
[2016-06-04 11:53] VITALS: BP 136/70
[2016-06-04] MEDS ORDERED: VANCOMYCIN COMPOUNDED BY PHARMACY IV SCH (12:30)
[2016-06-04] MEDS: MULTIVITAMIN W/MINERALS (THERAGRAN M) TABLET PO SCH (15:25)
[2016-06-04] MEDS: OMEGA-3 FATTY ACIDS (FISH OIL) 500 MG CAPSULE PO SCH (15:25)
[2016-06-04 16:00] VITALS: BP 153/72
--- NOTE | 2016-06-04 16:56 | PT Daily Note Inpatient (E) ---
PT Daily Treatment Service Date/Time 06/04/16, 16:54 Medical Diagnosis: (1) HCAP (healthcare-associated pneumonia) ICD Code: J18.9 (2) Back pain ICD Code: M54.9 (3) UTI (urinary tract infection) ICD Code: N39.0 Physical Therapy: (1) Back pain ICD Code: M54.9 (2) HCAP (healthcare-associated pneumonia) ICD Code: J18.9 Precaution/Isolation: Standard Precautions Fall Level: Low Risk 25-50 Subjective Oxygen Delivery: Nasal cannula O2 liters/minute: 4 Education/Plan Assessment PT called to check to see if patient could be seen for evaluation this date, nurse reported Dr. Hood was about to see the patient, therefore evaluation was not completed this date. PT had hold orders on evaluating the patient 06/03/2016. HERMILO PENA PT Jun 04, 2016 16:56
--- NOTE | 2016-06-04 16:57 | OT Daily Note Inpatient (E) ---
OT Daily Treatment Service Date/Time 06/04/16, 16:54 Primary Diagnosis: Treatment Diagnosis: Precaution/Isolation: Standard Precautions Fall Level: Low Risk 25-50 General Informantion Therapist attempted to evaluate patient this date. Unable to assess patient secondary to patient meeting with family and physician. Oxygen Needed: Nasal cannula O2 liters/minute: 4 VICENTE BINGHAM OT Jun 04, 2016 16:56
--- NOTE | 2016-06-04 17:40 | NUR ---
Vancomycin Dosing: Pharmacy managed S: SIRS/Sepsis: Attributed to possible HCAP pneumonia, UTI. Cultures pending. Empirically treating with Pip/Tazo (allergy to cephalexin) and vancomycin. O: 66y/o F, Values on 06/02: wt = 63 kg, SCr = 0.78 CrCl = 58 mL/min Values on 06/04: wt=63.9 kg, SCr = 0.62 CrCl = 72 mL/min. Vancomycin trough came back on 06/04 at 4:28 as 6.4 mcg/mL A/P: Current dose is Vancomycin 1000mg IV q18hr. Predicted trough was 18.4 mcg/mL for therapeutic goal of 15-20mcg/ml, actual trough is 6.4 mcg/mL. Due to trough being 6.4 mcg/mL and increase in CrCl to 72 mL/min, change in dose and frequency to: Vancomycin 1250 mg IV q12hr. Give first dose of 1250 mg 06-04-16 @ 1900. Predicted trough of 16 mcg/mL for therapeutic goal of 15-20 mcg/mL. Trough to be drawn before 9th dose (06-06-16 @ 2000). Will monitor and adjust if needed. Evaluated by Hank Joyner, PharmD Candidate 2017.
--- NOTE | 2016-06-04 17:58 | Discharge Summary (E) ---
Discharge Summary (A) Admit Date/Time Jun 01, 2016 at 21:03 Discharge Date/Time Jun 04, 2016 Admitting Provider Harris Scott MD Primary Care Provider Duran Gutierrez MD Attending Provider Harris Scott MD Discharging physician: Guadalupe James MD Consulting Provider Demetrio Hood MD Admission Diagnosis SIRS/Sepsis Acute Respiratory Distress HCAP Right Pleural Effusion Dehydration Pancytopenia Anemia Deconditioning History and Present Illness Natty Thompson is a 66 year old female admitted from ED 06/01 where she presented from home for concern of weakness. She has quite complex recent medical history including perihilar lymphadenopathy on the right and pleural effusion and she is s/p CT-guided biopsy at [facility] in [place] . Pathology is still pending. She has been unwell since early April and his been undergoing outpatient oncology workup including the biopsy as noted. Has a had a PET scan but doesn't know those results. Was supposed to have MRI brain but didn't tolerate lying flat. Was brought to ED because of marked weakness. Vitals were notable for SpO2 88% RA so she was placed on oxygen. CBC showed WBC 4.10 but with 46% N, 16% B, 20% L, 11% M, 1% E, 1% B. Hgb was quite low at 7.2. Plt also low at 89. On chemistry, CRP high at 27. Pro-BNP 1590. CXR showed persistence of right pleural effusion. Pathology from biopsy is pending in [place]. She has seen Dr. Hood for outpatient oncology workup and is due to see him in clinic again 06/04. In ED she was sigven NS bolus, ondansetron, hydromorphone, then ED physician called asking for admit. She was awake, interactive, oriented. Pale. and patient provide history as outlined above. says weakness was the primary reason for bringing her to hospital. Several family members have had URI symptoms and patient has had some upper nasal congestion. Some cough, sometime productive of mucus. She has had no fever. No chills. No night sweats. No rash. Hospital Course and Treatment Small cell lung cancer Diagnosed from recent lung biopsy. Patient is currently under the care of Dr. Hood. Will transfer to [place] to begin chemotherapy. Sepsis Criteria met with bandemia, tachycardia and tachypnea. Only bandemia has resolved. Attributed to HAP. VS's have improved. Continue treatment below. Acute hypoxic respiratory failure. Not on oxygen at home. Currently on 4 L per NC. Therapeutic thoracentesis 06.03.16 with significant improvement in respiratory status. HAP Evidenced by CXR, hypoxia, bandemia, and cough. BC's negative at 48 hours. Provided empiric treatment with pip/tazo and vancomycin. Vanc trough to be drawn prior to PM dose on 06.04, will allow trough to be drawn prior to next dose in [place]. Pleural effusion CT guided biopsy performed on 05.30.16 at [facility] in [place]. Pulled 1100ml from right lung. Therapeutic thoracentesis 06.03.16 Anemia 7.2 on admission. 8.4 after two units of blood. LDH is significantly elevated, haptoglobin high, not supporting hemolysis. Pancytopenia Monitoring hgb noted above. Plt's have been chronic. Leukopenia is new and improving slightly. Chronic pain On home norco dose. Seasonal allergies On loratadine (home dose of cetirizine is non-formulary here). DLD Continued home omega 3. Dehydration Evidenced by BUN. NS bolus given in the ED, 1L maintenance given on floor. FEN Fluids provided as noted above. Electrolytes--mild hyperkalemia and hyponatremia have both resolved. Diet as tolerated DVT proph SCD's. Code status Full code. Dispo Inpatient for above noted issues. Continues on oxygen. Dr. Hood would like to begin chemotherapy in [place], patient's care has been accepted by Dr. Julian at [facility]. Discharge Physicial Exam Physical Exam General--Awake and alert. No distress. HEENT--Normocephalic. MMM in oral cavity. Nasal cannula in place. Lungs--Clear to auscultation in left lung, right lung diminished. Nonlabored respirations. Heart--RRR. Abdomen--Normal bowel sounds. Soft. Nondistended. Nontender. Extremities--No edema to lower extremities. Radiology/Laboratory Data CXR 06.01.16 IMPRESSION: Increasing moderate sized right basilar pleural-parenchymal opacity, felt to relate a combination of pleural fluid with adjacent atelectasis or infiltrate. No pneumothorax. CXR 06.03.16 Impression: 1: Stable at least moderate right pleural effusion. 2: There is improved aeration of the right lung field with continued right midlung field right basilar atelectasis versus infiltrate. 3: The remainder of this exam shows no significant interval change compared to the prior study of comparison. Ultrasound guided thoracentesis .02.09 IMPRESSION: Uncomplicated ultrasound-guided right chest thoracentesis. Post thoracentesis chest x-ray as discussed above with no pneumothorax visualized. Laboratory Results Past 10Days 06/01/16 18:50: Absolute Band Neutrophils 0.6, Activated Partial Thromboplast Time 29.6, Alanine Aminotransferase (ALT/SGPT) 33, Albumin 3.2L, Albumin/Globulin Ratio 1.000L, Alkaline Phosphatase 256H, Anion Gap 14.2, Aspartate Amino Transf (AST/ SGOT) 55H, BUN/Creatinine Ratio 29H, Band Neutrophils % 16H, Basophils # (Auto) , Basophils # (Manual) 0.0, Basophils % (Manual) 1, Basophils (%) (Auto) , Blood Morphology Comment Normal, Blood Urea Nitrogen 21H, C-Reactive Protein 27.00H, Calcium Level 9.5, Calcium/Ionized Calcium Ratio 4.4, Calculated Osmolality 264L, Carbon Dioxide Level 24, Chloride Level 100, Creatine Kinase MB 1.3, Creatinine 0.73, Differential Total Cells Counted 100, Eosinophils # 0.0 , Eosinophils # (Auto) , Eosinophils % (Manual) 1, Eosinophils (%) (Auto) , Estimat Glomerular Filtration Rate 95.9, Estimated GFR (Non- 79.3, Glucose Level 148#H, Hematocrit 21.60L, Hemoglobin 7.2L, Lymphocytes # 0.8 , Lymphocytes # (Auto) , Lymphocytes % (Manual) 20, Lymphocytes (%) (Auto) , Magnesium Level 2.1, Mean Corpuscular Hemoglobin 29.0, Mean Corpuscular Hemoglobin Concent 33.3, Mean Corpuscular Volume 87, Mean Platelet Volume 10.5H , Metamyelocytes % 4H, Monocytes # 0.4, Monocytes # (Auto) , Monocytes % (Manual ) 11, Monocytes (%) (Auto) , Myelocytes 1, HH-Go[place]-L-Type Natriuretic Peptide 1590H, Neutrophils # 1.9, Neutrophils # (Auto) , Neutrophils (%) (Auto) , Platelet Count 89L, Potassium Level 4.5, Prothromb Time International Ratio 1.4 , Prothrombin Time 15.5H, Red Blood Count 2.48L, Red Cell Distribution Width 13.4, Segmented Neutrophils % 46L, Sodium Level 134L, Thyroid Stimulating Hormone (TSH) 1.23, Total Bilirubin 0.9, Total Creatine Kinase 77, Total Protein 6.4, Troponin I < 0.012, White Blood Count 4.10 06/01/16 21:30: Urine Bacteria Rare, Urine Bilirubin Negative, Urine Clarity Cloudy, Urine Collection Type Clean catch, Urine Color Dark yellow, Urine Glucose (UA) Negative, Urine Ketones Negative, Urine Leukocyte Esterase Negative, Urine Mucus 3+H, Urine Nitrite Negative, Urine Protein 1+H, Urine RBC None seen, Urine RBC (Auto) Negative, Urine Specific [place] 1.025, Urine Squamous Epithelial Cells 20-50, Urine Urobilinogen 0.2, Urine WBC 0-2, Urine pH 5.5, Volume Urine Centrifuged 12 ml 06/02/16 06:00: Absolute Band Neutrophils 0.2, Band Neutrophils % 7H, Basophils # (Auto) , Basophils # (Manual) 0.1, Basophils % (Manual) 2, Basophils (%) (Auto) , Blood Morphology Comment See reference, Differential Total Cells Counted 100, Eosinophils # 0.1, Eosinophils # (Auto) , Eosinophils % (Manual) 4, Eosinophils (%) (Auto) , Hematocrit 24.30L, Hemoglobin 8.0L, Lymphocytes # 0.8, Lymphocytes # (Auto) , Lymphocytes % (Manual) 24, Lymphocytes (%) (Auto) , Mean Corpuscular Hemoglobin 29.3, Mean Corpuscular Hemoglobin Concent 32.9, Mean Corpuscular Volume 89, Mean Platelet Volume 11.3H, Metamyelocytes % 1, Monocytes # 0.3, Monocytes # (Auto) , Monocytes % (Manual) 11, Monocytes (%) (Auto) , Neutrophils # 1.8, Neutrophils # (Auto) , Neutrophils (%) (Auto) , Platelet Count 79L, Red Blood Count 2.73L, Red Cell Distribution Width 13.9, Segmented Neutrophils % 51, White Blood Count 3.54L, Nucleated Red Blood Cells 1, Polychromasia Slight 06/02/16 06:10: Albumin 2.8L, Anion Gap 14.6, Blood Urea Nitrogen 23H, Calcium Level 9.5, Carbon Dioxide Level 21L, Chloride Level 105, Creatinine 0.78, Estimat Glomerular Filtration Rate 88.9, Estimated GFR (Non- 73.5, Glucose Level 110#, Potassium Level 5.3H, Sodium Level 135, Phosphorus Level 4.4 # 06/03/16 05:45: Absolute Band Neutrophils 0.2, Absolute Reticulocyte Count 18L, Alanine Aminotransferase (ALT/SGPT) 31, Albumin 2.7L, Albumin/Globulin Ratio 0.870L, Alkaline Phosphatase 213H, Anion Gap 13.0, Anisocytosis Slight, Aspartate Amino Transf (AST/SGOT) 51H, BUN/Creatinine Ratio 25H, Band Neutrophils % 5, Basophils # (Auto) , Basophils # (Manual) 0.0, Basophils % (Manual) 0, Basophils (%) (Auto) , Blood Morphology Comment See reference, Blood Urea Nitrogen 17, C-Reactive Protein 39.80H, Calcium Level 9.1, Calcium/Ionized Calcium Ratio 4.5, Calculated Osmolality 267L, Carbon Dioxide Level 26, Chloride Level 102, Conjugated Bilirubin 0.0, Creatinine 0.67, Differential Total Cells Counted 100, Eosinophils # 0.1, Eosinophils # (Auto) , Eosinophils % (Manual) 2, Eosinophils (%) (Auto) , Estimat Glomerular Filtration Rate 105.9 , Estimated GFR (Non- 87.5, Glucose Level 117H, Haptoglobin 543H , Hematocrit 22.50L, Hemoglobin 7.5L, Hypochromasia Slight, Immature Reticulocyte Fraction 22.50H, Lactate Dehydrogenase 4369H, Lymphocytes # 1.2, Lymphocytes # (Auto) , Lymphocytes % (Manual) 34, Lymphocytes (%) (Auto) , Magnesium Level 2.0, Mean Corpuscular Hemoglobin 29.5, Mean Corpuscular Hemoglobin Concent 33.3, Mean Corpuscular Volume 89, Mean Platelet Volume 10.9H , Metamyelocytes % 0, Monocytes # 0.1, Monocytes # (Auto) , Monocytes % (Manual ) 4, Monocytes (%) (Auto) , Neutrophils # 1.9, Neutrophils # (Auto) , Neutrophils (%) (Auto) , Percent Reticulocyte Count 0.72, Platelet Count 71L, Potassium Level 3.9#, Prothromb Time International Ratio 1.4, Prothrombin Time 15.4H, Red Blood Count 2.55L, Red Cell Distribution Width 13.7, Segmented Neutrophils % 55, Sodium Level 137, Total Bilirubin 0.8, Total Protein 5.8L, White Blood Count 3.53L 06/03/16 13:55: Lactate Dehydrogenase 2832H, Body Fluid Appearance Slt cldy, Body Fluid Color Yellow, Body Fluid Mononuclear WBCs 88, Body Fluid Polynuclear WBCs 13, Body Fluid RBC 1483, Body Fluid Source [place], Body Fluid Total Protein 2.8, Body Fluid WBC 1108 06/03/16 20:52: Hemoglobin 9.1L 06/04/16 04:28: Vancomycin Level Trough 6.4L 06/04/16 05:50: Absolute Band Neutrophils 0.2, Albumin 2.5L, Anion Gap 10.1, Anisocytosis Slight , Band Neutrophils % 6, Basophils # (Auto) , Basophils # (Manual) 0.0, Basophils % (Manual) 0, Basophils (%) (Auto) , Blood Morphology Comment See reference, Blood Urea Nitrogen 13, Calcium Level 9.0, Carbon Dioxide Level 27, Chloride Level 102, Creatinine 0.62, Differential Total Cells Counted 100, Eosinophils # 0.1, Eosinophils # (Auto) , Eosinophils % (Manual) 2, Eosinophils (%) (Auto) , Estimat Glomerular Filtration Rate 115.8, Estimated GFR (Non- 95.7, Glucose Level 117H, Hematocrit 25.10L, Hemoglobin 8.4L, Hypochromasia Slight, Lymphocytes # 1.1, Lymphocytes # (Auto) , Lymphocytes % ( Manual) 26, Lymphocytes (%) (Auto) , Magnesium Level 1.9, Mean Corpuscular Hemoglobin 28.4, Mean Corpuscular Hemoglobin Concent 33.5, Mean Corpuscular Volume 85, Mean Platelet Volume 10.7H, Metamyelocytes % 0, Monocytes # 0.2, Monocytes # (Auto) , Monocytes % (Manual) 6, Monocytes (%) (Auto) , Neutrophils # 2.7, Neutrophils # (Auto) , Neutrophils (%) (Auto) , Nucleated Red Blood Cells 1, Phosphorus Level 3.9, Platelet Count 67L, Polychromasia Slight, Potassium Level 3.7, Red Blood Count 2.96L, Red Cell Distribution Width 16.0H, Segmented Neutrophils % 60, Sodium Level 135, White Blood Count 4.44 06/04/16 15:20: Stool Occult Blood Negative 06/04/16 17:30: Hemoglobin 8.9L Discharge Provider's Instructions Transferring to [facility]. Discharge Diagnosis Small cell lung cancer Sepsis Acute hypoxic respiratory failure HAP Pleural effusion Anemia Pancytopenia Copies to: Additional Provider: DEMETRIO HOOD MD End of Report . GUADALUPE JAMES MD Jun 04, 2016 17:58
--- NOTE | 2016-06-04 18:58 | NUR ---
Pt informed of pending transfer prior to, given updates on time frame when available. Pt in good spirits, visitors in room. Susan infusing. 4L O2 per NC. Pt requested to wear home clothes for transfer. Pt states her family will not be coming up to [place] until tomorrow morning. Report given to Marisela Conteh RN at [facility]. EMS transportation transported pt to [id number] at this time on 4L NC, Susan continued on transport in [place]. Pt thankful for cares.
[2016-06-04] MEDS ORDERED: VANCOMYCIN 1250 MG in SODIUM CHLORIDE 250 ML IV SCH (19:00)
== END 2016-06-04 18:58 | disposition short-term general hospital (02) | DRG 871 ==
LOC: ED 18:07 → MED/SURG 21:03
PROVIDERS: ADMIT Internal Medicine; ATTEND Internal Medicine
PROC: 0W993ZZ Drainage of Right Pleural Cavity, Percutaneous Approach (ICD-10-PCS; principal; 2016-06-03)
DX: A41.9 Sepsis, unspecified organism (principal); J18.9 Pneumonia, unspecified organism; J96.01 Acute respiratory failure with hypoxia; J90 Pleural effusion, not elsewhere classified; D61.818 Other pancytopenia; C34.90 Malignant neoplasm of unspecified part of unspecified bronchus or lung; E87.1 Hypo-osmolality and hyponatremia; E86.0 Dehydration; D64.9 Anemia, unspecified; G89.29 Other chronic pain; R59.0 Localized enlarged lymph nodes; F17.210 Nicotine dependence, cigarettes, uncomplicated
CPT/HCPCS: 36415; 36430; 71010; 71020; 76942; 80053; 80069; 80202; 81003; 81015; 82248; 82550; 82553; 83010; 83615; 83735; 83880; 84157; 84443; 84484; 85018; 85025; 85045; 85610; 85730; 86140; 86850; 86900; 86901; 86920; 87040; 89050; 93005; 93010; 94640; 94760; 96361; 96374; 96375; 99285

== ENCOUNTER → 2016-06-04 | Outpatient (CLI) | payer MEDICARE ==
[~2016-06-04] MED LIST changes: +FLUT9.9S NSEACH; +MAGN800O PO; +NAPR1TAB25 PO; +NAPR220T76 PO; +OXYC1TAB7 PO
== END ==
LOC: EMS 18:50
PROVIDERS: ATTEND Internal Medicine
DX: D64.9 Anemia, unspecified (principal); D69.6 Thrombocytopenia, unspecified; R09.02 Hypoxemia

== ENCOUNTER → 2016-06-27 | Outpatient (REF) | payer MEDICARE ==
[2016-06-27 15:03] LABS: MEAN CORPUSCULAR HEMOGLOBIN 29.7 PG (26.0-34.0); MEAN CORPUSCULAR HGB CONC 34.3 g/dL (31.0-37.0); MEAN CORPUSCULAR VOLUME 87 FL (80-100); MEAN PLATELET VOLUME 12.3 FL (6.0-9.5); WHITE BLOOD COUNT 5.02 10^3uL (4.0-11.0)
[2016-06-27 15:23] LABS: BAND NEUTROPHILS % 6 % (0-6); EOSINOPHILS % 0 % (0-4); LYMPHOCYTES # 1.4 #; MONOCYTES # 0.7 #; MONOCYTES % 13 % (3-11); NUCLEATED RED BLOOD CELLS 1; PLATELET COUNT 24 10^3uL (150-450); RBC MORPH NORMAL (NORMAL); SEGMENTED NEUTROPHILS % 43 % (51-67); TOTAL CELLS COUNTED 100
[2016-06-27 15:24] LABS: ANION GAP 11.8 MEQ/L (3-15); MAGNESIUM* 2.1 mg/dL (1.6-2.3)
== END ==
LOC: LAB 14:03
PROVIDERS: ATTEND Internal Medicine Hematology & Oncology
DX: C34.90 Malignant neoplasm of unspecified part of unspecified bronchus or lung (principal)
CPT/HCPCS: 80048; 83735; 85007; 85027

== ENCOUNTER → 2016-07-02 | Outpatient (CLI) | payer MEDICARE ==
[2016-07-02 10:08] LABS: MEAN CORPUSCULAR HEMOGLOBIN 29.5 PG (26.0-34.0); MEAN CORPUSCULAR HGB CONC 33.3 g/dL (31.0-37.0); MEAN CORPUSCULAR VOLUME 88 FL (80-100); MEAN PLATELET VOLUME 10.3 FL (6.0-9.5); PLATELET COUNT 52 10^3uL (150-450); WHITE BLOOD COUNT 4.87 10^3uL (4.0-11.0)
[2016-07-02 10:19] LABS: ALBUMIN 3.4 g/dL (3.4-5.0); ANION GAP 12.9 MEQ/L (3-15); CALCULATED IONIZED CALCIUM 4.2 mg/dL (3.8-4.6); TOTAL PROTEIN 6.4 g/dL (6.4-8.5)
[2016-07-02 10:40] LABS: BAND NEUTROPHILS % 17 % (0-6); EOSINOPHILS % 0 % (0-4); LYMPHOCYTES # 0.9 #; MONOCYTES # 0.3 #; MONOCYTES % 8 % (3-11); RBC MORPH NORMAL (NORMAL); SEGMENTED NEUTROPHILS % 55 % (51-67); TOTAL CELLS COUNTED 100
== END ==
LOC: LAB 09:54
PROVIDERS: ATTEND Internal Medicine Hematology & Oncology
DX: C34.2 Malignant neoplasm of middle lobe, bronchus or lung (principal)
CPT/HCPCS: 36415; 80053; 85025

== ENCOUNTER → 2016-07-08 | Outpatient (REF) | payer MEDICARE ==
[2016-07-08 12:47] LABS: MEAN CORPUSCULAR HEMOGLOBIN 29.7 PG (26.0-34.0); MEAN CORPUSCULAR HGB CONC 33.6 g/dL (31.0-37.0); MEAN CORPUSCULAR VOLUME 88 FL (80-100); MEAN PLATELET VOLUME 11.4 FL (6.0-9.5); PLATELET COUNT 54 10^3uL (150-450); WHITE BLOOD COUNT 2.41 10^3uL (4.0-11.0)
[2016-07-08 13:02] LABS: BAND NEUTROPHILS % 9 % (0-6); EOSINOPHILS % 0 % (0-4); LYMPHOCYTES # 0.3 #; MONOCYTES # 0.1 #; MONOCYTES % 3 % (3-11); RBC MORPH NORMAL (NORMAL); SEGMENTED NEUTROPHILS % 74 % (51-67); TOTAL CELLS COUNTED 100
== END ==
LOC: LAB 12:05
PROVIDERS: ATTEND Internal Medicine Hematology & Oncology
DX: C34.2 Malignant neoplasm of middle lobe, bronchus or lung (principal)
CPT/HCPCS: 85025

== ENCOUNTER 2016-07-12 07:44 | Day surgery (SDC) | payer MEDICARE ==
[~2016-07-12] VITALS: Ht 170.2 cm; Wt 56.0 kg
[~2016-07-12 07:44] MED LIST changes: +ACETAMINOPHEN 500 MG TAB (TYLENOL) PO SCH; -CALC600T19 PO; -CEFD300C PO; -CETI10TA20 PO; +CLINDAMYCIN IV ONE; -CPR500T PO; -DOXY100C2 PO; -FLUT9.9S NSEACH; -HYDR-3702 PO; +LACTATED RINGERS 1,000 ML IV SCH; -MAGN250T PO; -MAGN800O PO; -MULT1TAB63 PO; -NAPR1TAB25 PO; -NAPR220T76 PO; -OMEG-7 PO; -ONDA4TAB11 PO; -ONDA4TAB8 PO; -OXYC1TAB7 PO; +SODIUM CHLORIDE FLUSH 3 ML SYR IV PRN; +SODIUM CHLORIDE IV ONE; +oxyCODONE IMMEDIATE RELEASE 5 MG (OXYIR) TAB PO SCH
[2016-07-12 08:01] VITALS: BP 123/75
[2016-07-12] MEDS ORDERED: BUPIVACAINE/EPINEPHRINE 0.25%-1:200,000 (MARCAINE) 30 ML VIAL INJ ONE (08:12)
[2016-07-12] MEDS ORDERED: HEPARIN 5000 UNIT/0.5 ML SYRINGE ONE (08:12)
[2016-07-12] MEDS ORDERED: LIDOCAINE/EPINEPHRINE 1% 1:100,000 (XYLOCAINE) 30 ML VIAL INJ ONE (08:12)
[2016-07-12] MEDS ORDERED: SODIUM CHLORIDE FLUSH 10 ML ONE (08:12)
--- NOTE | 2016-07-12 08:18 | NUR ---
RIGHT UPPER ARM PICC LINE IN PLACE UPON ARRIVAL. OK BY DR. VALDIVIA AND JACQUIE, TECHNOLOGY ADVISOR TO USE FOR PROCEDURE. LINE FLUSHES WELL WITH 10ML OF NS. 10ML BLOOD DRAWN FROM RED LINE AND WASTED FOLLOWED BY 3 ML BLOOD DRAW FOR CBC WITH MANUAL DIFF. FLUSHED WITH 10ML NS AND IV FLUIDS WITH ANTIBIOTIC STARTED. SEE EMAR FOR DETAILS.
[2016-07-12 08:24] LABS: MEAN CORPUSCULAR VOLUME 88 FL (80-100); MEAN PLATELET VOLUME 11.3 FL (6.0-9.5)
[2016-07-12 08:31] LABS: WHITE BLOOD COUNT 1.44 10^3uL (4.0-11.0)
[2016-07-12 08:32] LABS: PLATELET COUNT 13 10^3uL (150-450)
[2016-07-12 08:48] LABS: ANISOCYTOSIS SLIGHT; BAND NEUTROPHILS % 8 % (0-6); EOSINOPHILS % 0 % (0-4); LYMPHOCYTES # 0.6 #; MICROCYTOSIS MODERATE; MONOCYTES # 0.2 #; MONOCYTES % 19 % (3-11); POIKILOCYTOSIS SLIGHT; RBC MORPH SEE REFERENCE (NORMAL); SEGMENTED NEUTROPHILS % 32 % (51-67); TOTAL CELLS COUNTED 100
--- NOTE | 2016-07-12 09:30 | NUR ---
PATIENT REPORTS NAUSEA FOLLOWED BY 50ML OF EMESIS. COOL TOWEL APPLIED AND FAN PROVIDED.
--- NOTE | 2016-07-12 10:25 | NUR ---
PATIENT VOMITS 200ML. STATES THIS MADE HER FEEL BETTER. PATIENT ALSO STATES SHE HAS HAD NAUSEA AND VOMITING WITH OXYCODONE IN THE PAST BUT SHE DOES OK WITH PERCOCET. PATIENT STATES, "THAT MUFFIN JUST DIDN'T SIT WELL."
--- NOTE | 2016-07-12 10:40 | NUR ---
REPORT CALLED TO FRANSISCO SEGUNDO, BINDERY MACHINE TENDER. PATIENT WILL BE TRANSPORTED TO ICU VIA CART FOR BLOOD TRANSFUSION TO TAKE PLACE THIS AFTERNOON.
--- NOTE | 2016-07-12 10:45 | NUR ---
PATIENT STATES SHE IS FEELING BETTER AND DOESN'T FEEL LIKE SHE NEEDS ANY MEDICATIONS FOR NAUSEA.
--- NOTE | 2016-07-12 10:50 | NUR ---
PATIENT'S WHEELCHAIR AND REST OF BELONGINGS TAKEN TO ROOM 341. DISCUSSED POC WITH STEPHANIE NULL. PATIENT TO BE TRANSPORTED AFTER FLUIDS HAVE FINISHED IN ASC.
--- NOTE | 2016-07-12 11:24 | NUR ---
PATIENT TRANSPORTED TO ICU VIA CART. RAILS UP X2. VOMITS 75ML ON ELEVATOR. PATIENT MOVES SELF FROM CART TO BED WITHOUT DIFFICULTY. STATES SHE JUST WANTS TO REST.
[2016-07-12] MEDS ORDERED: SODIUM CHLORIDE FLUSH 3 ML SYR IV PRN (11:25)
[2016-07-12] MEDS ORDERED: LMX 4 KIT (LIDOCAINE 4% 5 GM TUBE/TRANSPARENT DRESSING) TOP PRN (11:25)
[2016-07-12] MEDS ORDERED: SODIUM CHLORIDE FLUSH 10 ML SYR IV PRN (11:25)
[2016-07-12] MEDS ORDERED: diphenhydrAMINE 25 MG (BENADRYL) TABLET PO SCH (11:45)
[2016-07-12] MEDS ORDERED: ACETAMINOPHEN 325 MG TAB (TYLENOL) PO SCH (11:45)
[2016-07-12] MEDS ORDERED: NS 250 ML (IVPB) BAG IV SCH (12:00)
== END 2016-07-12 11:24 | disposition home or self-care (01) ==
LOC: ASC 07:44
PROVIDERS: ATTEND Surgery
DX: C34.2 Malignant neoplasm of middle lobe, bronchus or lung (principal); C79.51 Secondary malignant neoplasm of bone; C77.1 Secondary and unspecified malignant neoplasm of intrathoracic lymph nodes
CPT/HCPCS: 36415; 85007; 85027; A9270; J7050; J7120

== ENCOUNTER 2016-07-12 11:07 | Outpatient (CLI) | payer MEDICARE ==
[2016-07-12] VITALS (14 sets, daily range): BP systolic 84–111; BP diastolic 44–63
--- NOTE | 2016-07-12 11:30 | NUR ---
Patient arrives to room 341 for PRBC infusion at this time. She transfers to bed and requests to rest quietly under the covers.
[2016-07-12] MEDS ORDERED: SODIUM CHLORIDE FLUSH 3 ML SYR IV PRN (12:50)
[2016-07-12] MEDS ORDERED: SODIUM CHLORIDE FLUSH 10 ML SYR IV PRN (12:50)
[2016-07-12] MEDS ORDERED: LMX 4 KIT (LIDOCAINE 4% 5 GM TUBE/TRANSPARENT DRESSING) TOP PRN (12:50)
[2016-07-12] MEDS ORDERED: diphenhydrAMINE 25 MG (BENADRYL) TABLET PO SCH (13:00)
[2016-07-12] MEDS ORDERED: ACETAMINOPHEN 325 MG TAB (TYLENOL) PO SCH (13:00)
[2016-07-12] MEDS ORDERED: NS 250 ML (IVPB) BAG IV SCH (13:00)
--- NOTE | 2016-07-12 15:05 | NUR ---
PRBC infusion @125 cc/hr begins in R. PICC at this time. VSS
--- NOTE | 2016-07-12 15:21 | NUR ---
VSS. Patient up in bed eating. infusion increased to 175cc/hr
--- NOTE | 2016-07-12 16:50 | NUR ---
First unit of PRBC is completed at 1650. VSS. Patient is up in bed watching television.
--- NOTE | 2016-07-12 17:12 | NUR ---
2nd unit of PRBC to be started at this time
--- NOTE | 2016-07-12 17:25 | NUR ---
infusion increased to 175 cc/hr. VSS and the patient is up in bed for meal.
--- NOTE | 2016-07-12 18:54 | NUR ---
2nd unit of PRBC complete at this time. VSS. Patient is preparing for discharge. at the bedside
--- NOTE | 2016-07-12 19:00 | NUR ---
Patient escorted out of the building at this time. cares relinquished.
== END 2016-07-12 19:15 | disposition home or self-care (01) ==
LOC: EUOP 11:07 → ICU 11:30 → EUOP 19:15
PROVIDERS: ATTEND Internal Medicine Hematology & Oncology
DX: D64.9 Anemia, unspecified (principal)
CPT/HCPCS: 36430; 86850; 86900; 86901; 86920; A9270; J1642; J7050; P9040

== ENCOUNTER → 2016-07-15 | Outpatient (REF) | payer MEDICARE ==
[2016-07-15 16:50] LABS: MEAN CORPUSCULAR HEMOGLOBIN 30.6 PG (26.0-34.0); MEAN CORPUSCULAR HGB CONC 34.6 g/dL (31.0-37.0); MEAN CORPUSCULAR VOLUME 88 FL (80-100)
[2016-07-15 17:36] LABS: PLATELET COUNT 15 10^3uL (150-450)
[2016-07-15 18:00] LABS: BAND NEUTROPHILS % 1 % (0-6); EOSINOPHILS % 3 % (0-4); LYMPHOCYTES # 0.8 #; MONOCYTES # 0.4 #; MONOCYTES % 6 % (3-11); SEGMENTED NEUTROPHILS % 65 % (51-67); TOTAL CELLS COUNTED 100
[2016-07-15 18:01] LABS: ANISOCYTOSIS SLIGHT; RBC MORPH SEE REFERENCE (NORMAL)
== END ==
LOC: LAB 15:40
PROVIDERS: ATTEND Internal Medicine Hematology & Oncology
DX: C34.2 Malignant neoplasm of middle lobe, bronchus or lung (principal)
CPT/HCPCS: 85025

== ENCOUNTER → 2016-07-18 | Outpatient (REF) | payer MEDICARE ==
[2016-07-18 13:03] LABS: MEAN CORPUSCULAR HEMOGLOBIN 30.4 PG (26.0-34.0); MEAN CORPUSCULAR HGB CONC 33.8 g/dL (31.0-37.0); MEAN CORPUSCULAR VOLUME 90 FL (80-100); MEAN PLATELET VOLUME 12.4 FL (6.0-9.5); WHITE BLOOD COUNT 9.14 10^3uL (4.0-11.0)
[2016-07-18 13:15] LABS: BAND NEUTROPHILS % 10 % (0-6); LYMPHOCYTES # 0.7 #; PLATELET COUNT 28 10^3uL (150-450); SEGMENTED NEUTROPHILS % 82 % (51-67); TOTAL CELLS COUNTED 100
[2016-07-18 13:16] LABS: ANISOCYTOSIS SLIGHT; EOSINOPHILS % 0 % (0-4); HYPOCHROMASIA SLIGHT; MONOCYTES % 0 % (3-11); NUCLEATED RED BLOOD CELLS 1; RBC MORPH SEE REFERENCE (NORMAL)
== END ==
LOC: LAB 11:35
PROVIDERS: ATTEND Internal Medicine Hematology & Oncology
DX: C34.2 Malignant neoplasm of middle lobe, bronchus or lung (principal)
CPT/HCPCS: 85007; 85027

== ENCOUNTER 2016-07-22 08:35 | Day surgery (SDC) | payer MEDICARE ==
[~2016-07-22] VITALS: Ht 170.2 cm; Wt 57.0 kg
[~2016-07-22 08:35] MED LIST changes: -CLINDAMYCIN IV ONE; -SODIUM CHLORIDE IV ONE
[2016-07-22 08:50] VITALS: BP 104/67
--- NOTE | 2016-07-22 08:50 | NUR ---
PICC USED FOR BLOOD DRAW PER DR. VALDIVIA. 10ML NS FLUSED AND 10ML BLOOD WASTED FOLLOWED BY BLOOD DRAW.
[2016-07-22 09:00] LABS: MEAN CORPUSCULAR HEMOGLOBIN 30.8 PG (26.0-34.0); MEAN CORPUSCULAR HGB CONC 33.6 g/dL (31.0-37.0); MEAN CORPUSCULAR VOLUME 92 FL (80-100); PLATELET COUNT 57 10^3uL (150-450); WHITE BLOOD COUNT 10.11 10^3uL (4.0-11.0)
[2016-07-22] MEDS: SODIUM CHLORIDE FLUSH 10 ML SYR IV PRN ×2 (09:00→13:01)
[2016-07-22 09:04] LABS: ANISOCYTOSIS SLIGHT; BAND NEUTROPHILS % 12 % (0-6); EOSINOPHILS % 1 % (0-4); LYMPHOCYTES # 0.7 #; MONOCYTES # 1.1 #; MONOCYTES % 11 % (3-11); NUCLEATED RED BLOOD CELLS 2; RBC MORPH SEE REFERENCE (NORMAL); SEGMENTED NEUTROPHILS % 68 % (51-67); TOTAL CELLS COUNTED 100
[2016-07-22] MEDS ORDERED: CLINDAMYCIN IV ONE (09:15)
[2016-07-22] MEDS ORDERED: SODIUM CHLORIDE IV ONE (09:15)
[2016-07-22] MEDS ORDERED: MIDAZOLAM 2 MG/2 ML (VERSED) VIAL ONE (09:38)
[2016-07-22] MEDS ORDERED: PROPOFOL 20 ML IV ONE (09:38)
[2016-07-22] MEDS ORDERED: ALFENTANIL 500 MCG/ML (ALFENTA) 5 ML AMP IV ONE ×2 (09:39)
[2016-07-22] MEDS ORDERED: EPINEPHrine 1MG/ML (1:1000) 1 ML AMPUL (ADRENALIN) ONE (09:59)
[2016-07-22] MEDS ORDERED: ePHEDrine SULFATE 50 MG/ML 1 ML AMP ONE (10:00)
[2016-07-22 11:04] VITALS: BP 118/72
--- NOTE | 2016-07-22 11:15 | NUR ---
CT NOTIFIED THAT PATIENT IS BACK FROM PROCEDURE. CT OK FOR PATIENT TO DRINK READY CAT AND GO FOR SCAN 1 HOUR AFTER FINISHING.
--- NOTE | 2016-07-22 11:20 | NUR ---
PT COMPLETES DRINK. CT NOTIFIED.
--- NOTE | 2016-07-22 11:33 | NUR ---
PICC LINE PULLED PER DR. VALDIVIA. PATIENT TOLERATES PROCEDURE WELL. 35 CM PICC CONFIRMED WITH PICC LINE PLACEMENT FROM [facility] DISCHARGE PER DR. BERMAN'S OFFICE.
[2016-07-22 11:55] VITALS: BP 136/56
--- NOTE | 2016-07-22 11:57 | NUR ---
PATIENT REFUSES TRAMADOL RX FOR HOME.
[2016-07-22] MEDS ORDERED: ONDANSETRON 2 MG/ML (Z0FRAN) 2 ML VIAL IV PRN (12:20)
--- NOTE | 2016-07-22 13:01 | NUR ---
PORT FLUSHED WITH 10ML NS AND 5ML HEPARIN. LUER LOCK APPLIED TO PORT. [facility] NOTIFIED AND OK WITH THIS DEVICE.
== END 2016-07-22 13:14 | disposition home or self-care (01) ==
LOC: ASC 08:35
PROVIDERS: ATTEND Surgery
DX: C79.51 Secondary malignant neoplasm of bone (principal); C77.1 Secondary and unspecified malignant neoplasm of intrathoracic lymph nodes; C34.2 Malignant neoplasm of middle lobe, bronchus or lung; Z87.891 Personal history of nicotine dependence; D61.810 Antineoplastic chemotherapy induced pancytopenia
CPT/HCPCS: 36415; 36561; 71260; 74178; 77001; 85007; 85027; C1788; J0171; J1642; J2250; J7050; J7120; Q9967

== ENCOUNTER → 2016-07-23 | Outpatient (REF) | payer MEDICARE | LOC: LAB 08:33 | PROVIDERS: ATTEND Internal Medicine Hematology & Oncology | DX: C34.2 Malignant neoplasm of middle lobe, bronchus or lung (principal) | CPT/HCPCS: 82565 ==

== ENCOUNTER → 2016-07-29 | Outpatient (REF) | payer MEDICARE ==
[2016-07-29 17:26] LABS: MEAN CORPUSCULAR HEMOGLOBIN 31.1 PG (26.0-34.0); MEAN CORPUSCULAR HGB CONC 33.3 g/dL (31.0-37.0); MEAN CORPUSCULAR VOLUME 93 FL (80-100); MEAN PLATELET VOLUME 11.5 FL (6.0-9.5); PLATELET COUNT 50 10^3uL (150-450); WHITE BLOOD COUNT 7.71 10^3uL (4.0-11.0)
[2016-07-29 17:34] LABS: ALBUMIN 3.3 g/dL (3.4-5.0); ANION GAP 12.2 MEQ/L (3-15); CALCULATED IONIZED CALCIUM 3.8 mg/dL (3.8-4.6); MAGNESIUM* 2.1 mg/dL (1.6-2.3); PHOSPHORUS 2.4 mg/dL (2.4-4.9); TOTAL PROTEIN 5.6 g/dL (6.4-8.5)
[2016-07-29 18:33] LABS: BAND NEUTROPHILS % 2 % (0-6); EOSINOPHILS % 0 % (0-4); LYMPHOCYTES # 0.5 #; MONOCYTES # 0.2 #; MONOCYTES % 3 % (3-11); SEGMENTED NEUTROPHILS % 89 % (51-67); TOTAL CELLS COUNTED 100
[2016-07-29 18:34] LABS: RBC MORPH NORMAL (NORMAL)
== END ==
LOC: LAB 16:16
PROVIDERS: ATTEND Internal Medicine Hematology & Oncology
DX: C34.2 Malignant neoplasm of middle lobe, bronchus or lung (principal)
CPT/HCPCS: 80053; 83615; 83735; 84100; 85025

== ENCOUNTER → 2016-08-05 | Outpatient (REF) | payer MEDICARE ==
[2016-08-05 16:03] LABS: MEAN PLATELET VOLUME 11.6 FL (6.0-9.5); PLATELET COUNT 35 10^3uL (150-450); WHITE BLOOD COUNT 6.35 10^3uL (4.0-11.0)
[2016-08-05 16:11] LABS: MEAN CORPUSCULAR HEMOGLOBIN 30.6 PG (26.0-34.0); MEAN CORPUSCULAR HGB CONC 31.5 g/dL (31.0-37.0); MEAN CORPUSCULAR VOLUME 98 FL (80-100)
[2016-08-05 16:28] LABS: BAND NEUTROPHILS % 12 % (0-6); LYMPHOCYTES # 0.3 #; SEGMENTED NEUTROPHILS % 75 % (51-67)
[2016-08-05 16:29] LABS: EOSINOPHILS % 0 % (0-4); HYPOCHROMASIA SLIGHT; MONOCYTES # 0.5 #; MONOCYTES % 8 % (3-11); RBC MORPH SEE REFERENCE (NORMAL); TOTAL CELLS COUNTED 100
[2016-08-05 19:45] LABS: IRON 121 ug/dL (50-170); UNBOUND IRON CONTENT 92 ug/dl (126-382)
== END ==
LOC: LAB 15:12
PROVIDERS: ATTEND Internal Medicine Hematology & Oncology
DX: C34.2 Malignant neoplasm of middle lobe, bronchus or lung (principal)
CPT/HCPCS: 82728; 83540; 83550; 85025

== ENCOUNTER 2016-08-06 10:45 | Outpatient (RCR) | payer MEDICARE ==
[2016-08-06] VITALS (17 sets, daily range): BP systolic 106–127; BP diastolic 57–72
[~2016-08-06] VITALS: Ht 170.2 cm; Wt 50.0 kg
[2016-08-06] MEDS ORDERED: LMX 4 KIT (LIDOCAINE 4% 5 GM TUBE/TRANSPARENT DRESSING) TOP PRN (11:00)
[2016-08-06] MEDS ORDERED: NS 250 ML (IVPB) BAG IV SCH (11:00)
[2016-08-06] MEDS ORDERED: diphenhydrAMINE 25 MG (BENADRYL) TABLET PO ONE (11:00)
[2016-08-06] MEDS ORDERED: SODIUM CHLORIDE FLUSH 10 ML SYR IV PRN (11:00)
[2016-08-06] MEDS ORDERED: ACETAMINOPHEN 325 MG TAB (TYLENOL) PO ONE (11:00)
[2016-08-06] MEDS ORDERED: SODIUM CHLORIDE FLUSH 3 ML SYR IV PRN (11:00)
--- NOTE | 2016-08-06 11:00 | NUR ---
Pt arrived in ICU per W/C for blood transfusion. R port accessed using sterile technique, good blood return. Port flushed with 10cc NS. Site covered with tegaderm. Monitor applied for VS.
--- NOTE | 2016-08-06 11:45 | NUR ---
1st unit of [facility] #[id number] started, verified by Karthik BROWN.
--- NOTE | 2016-08-06 13:55 | NUR ---
1st unit of blood finished.
--- NOTE | 2016-08-06 14:00 | NUR ---
2 unit of PRBC started at 1400 infusing at 125cc/hr. unit # [id number]
--- NOTE | 2016-08-06 15:45 | NUR ---
2nd unit of blood finished and NS infusing at present.
--- NOTE | 2016-08-06 16:20 | NUR ---
Port deaccessed. Prior to deaccessing port it was flushed with 10cc NS and 3cc of Heparin. Pt left per W/C with to home at 1625.
== END 2016-08-06 16:25 | disposition home or self-care (01) ==
LOC: EUOP 10:45 → ICU 10:55 → EUOP 16:25
PROVIDERS: ATTEND Internal Medicine Hematology & Oncology
DX: D64.9 Anemia, unspecified (principal)
CPT/HCPCS: 36415; 36430; 85014; 85018; 86850; 86900; 86901; 86920; A9270; J1642; J7050; P9016

== ENCOUNTER → 2016-08-12 | Outpatient (REF) | payer MEDICARE ==
[2016-08-12 13:50] LABS: MEAN CORPUSCULAR HEMOGLOBIN 31.3 PG (26.0-34.0); MEAN CORPUSCULAR HGB CONC 32.6 g/dL (31.0-37.0); MEAN CORPUSCULAR VOLUME 96 FL (80-100); MEAN PLATELET VOLUME 11.3 FL (6.0-9.5); WHITE BLOOD COUNT 4.69 10^3uL (4.0-11.0)
[2016-08-12 13:55] LABS: BAND NEUTROPHILS % 1 % (0-6); EOSINOPHILS % 0 % (0-4); LYMPHOCYTES # 1.5 #; MONOCYTES # 0.2 #; MONOCYTES % 4 % (3-11); SEGMENTED NEUTROPHILS % 62 % (51-67); TOTAL CELLS COUNTED 100
[2016-08-12 13:56] LABS: PLATELET COUNT 49 10^3uL (150-450); RBC MORPH SEE REFERENCE (NORMAL)
[2016-08-12 13:57] LABS: ANISOCYTOSIS SLIGHT; POIKILOCYTOSIS SLIGHT
== END ==
LOC: LAB 13:18
PROVIDERS: ATTEND Internal Medicine Hematology & Oncology
DX: C34.2 Malignant neoplasm of middle lobe, bronchus or lung (principal)
CPT/HCPCS: 82565; 85025

== ENCOUNTER → 2016-08-19 | Outpatient (REF) | payer MEDICARE ==
[2016-08-19 13:26] LABS: BASOPHILS % (AUTO) 0 % (0-2); EOSINOPHILS # (AUTO) 0.1 10^3uL; EOSINOPHILS % (AUTO) 1 % (0-4); LYMPHOCYTES # (AUTO) 0.7 X10^3; MEAN CORPUSCULAR HGB CONC 32.3 g/dL (31.0-37.0); MEAN CORPUSCULAR VOLUME 97 FL (80-100); MONOCYTES # (AUTO) 0.7 X10^3; MONOCYTES % (AUTO) 14 % (3-11); NEUTROPHILS # (AUTO) 3.4 X10^3; NEUTROPHILS % (AUTO) 69 % (51-67); PLATELET COUNT 66 10^3uL (150-450); WHITE BLOOD COUNT 4.97 10^3uL (4.0-11.0)
[2016-08-19 13:33] LABS: MEAN CORPUSCULAR HEMOGLOBIN 31.4 PG (26.0-34.0)
== END ==
LOC: LAB 12:28
PROVIDERS: ATTEND Internal Medicine Hematology & Oncology
DX: C34.2 Malignant neoplasm of middle lobe, bronchus or lung (principal)
CPT/HCPCS: 85025

== ENCOUNTER → 2016-08-20 | Outpatient (REF) | payer MEDICARE ==
[~2016-08-20] MED LIST changes: -ACETAMINOPHEN 500 MG TAB (TYLENOL) PO SCH; +CALC600T19 PO; +CEFD300C PO; +CETI10TA20 PO; +CPR500T PO; +DOXY100C2 PO; +FLUT9.9S NSEACH; +HYDR-3702 PO; -LACTATED RINGERS 1,000 ML IV SCH; +MAGN250T PO; +MAGN800O PO; +MULT1TAB63 PO; +NAPR1TAB25 PO; +NAPR220T76 PO; +OMEG-7 PO; +ONDA4TAB11 PO; +ONDA4TAB8 PO; +OXYC1TAB7 PO; -SODIUM CHLORIDE FLUSH 3 ML SYR IV PRN; -oxyCODONE IMMEDIATE RELEASE 5 MG (OXYIR) TAB PO SCH
[2016-08-20 18:20] LABS: IRON 94 ug/dL (50-170); UNBOUND IRON CONTENT 112 ug/dl (126-382)
== END ==
LOC: LAB 10:00
PROVIDERS: ATTEND Internal Medicine Hematology & Oncology
DX: C34.2 Malignant neoplasm of middle lobe, bronchus or lung (principal); D64.81 Anemia due to antineoplastic chemotherapy
CPT/HCPCS: 82728; 83540; 83550

== ENCOUNTER → 2016-08-26 | Outpatient (REF) | payer MEDICARE ==
[2016-08-26 17:43] LABS: ALBUMIN 3.3 g/dL (3.4-5.0); ANION GAP 14.5 MEQ/L (3-15); CALCULATED IONIZED CALCIUM 3.9 mg/dL (3.8-4.6); MAGNESIUM* 1.9 mg/dL (1.6-2.3); PHOSPHORUS 3.4 mg/dL (2.4-4.9); TOTAL PROTEIN 5.6 g/dL (6.4-8.5)
[2016-08-26 18:00] LABS: MEAN CORPUSCULAR HGB CONC 32.4 g/dL (31.0-37.0); MEAN PLATELET VOLUME 11.5 FL (6.0-9.5); PLATELET COUNT 54 10^3uL (150-450); WHITE BLOOD COUNT 11.81 10^3uL (4.0-11.0)
[2016-08-26 18:06] LABS: MEAN CORPUSCULAR VOLUME 99 FL (80-100)
[2016-08-26 18:07] LABS: ANISOCYTOSIS SLIGHT; BAND NEUTROPHILS % 6 % (0-6); EOSINOPHILS % 0 % (0-4); LYMPHOCYTES # 0.7 #; MONOCYTES # 0.1 #; MONOCYTES % 1 % (3-11); RBC MORPH SEE REFERENCE (NORMAL); SEGMENTED NEUTROPHILS % 87 % (51-67); TOTAL CELLS COUNTED 100
== END ==
LOC: LAB 16:55
PROVIDERS: ATTEND Internal Medicine Hematology & Oncology
DX: C34.2 Malignant neoplasm of middle lobe, bronchus or lung (principal)
CPT/HCPCS: 80053; 83615; 83735; 84100; 85025

== ENCOUNTER → 2016-08-27 | Outpatient (CLI) | payer MEDICARE ==
--- NOTE | 2016-08-27 09:16 | Diagnostic Imaging Report ---
PROCEDURE: CT chest pelvis with and abdomen with and without contrast. TECHNIQUE: Multiple contiguous axial images were obtained through the chest, abdomen and pelvis after uneventful bolus administration of intravenous contrast. Precontrast acquisitions were acquired through the abdomen. INDICATION: Lungs CA. Comparison with 07/22/2016. FINDINGS: CT CHEST WITH CONTRAST: The mass which have been followed in the right middle lobe continues to shrink in size. This now measures approximately 8 x 8 mm. There is some linear scarring remaining in the right middle lobe as well. No new masses have developed. There are no infiltrates present. The previously reported mediastinal adenopathy and right hilar adenopathy appears unchanged. The right hilar lymph node previously measured 12 mm again measures 12 mm. No new adenopathy is developed. There is no pleural effusion. Bone windows are unchanged with scattered foci of patchy sclerosis again noted. No evidence of pathologic fractures. IMPRESSION: 1. Significant decrease in right middle lobe mass now measuring 7 x 7 mm. 2. Mediastinal and hilar adenopathy appears unchanged. 3. Diffuse sclerotic bony lesions also appear stable. CT ABDOMEN PELVIS WITH: Liver appears normal. No liver lesions have developed. The gallbladder and bile ducts are normal. The pancreas and spleen are normal. The adrenal glands are not enlarged. The kidneys show normal enhancement following IV contrast. There is noted a benign cyst in right kidney again measuring approximately 2 cm. No solid masses have developed. Aorta is well opacified with contrast showing atherosclerosis without evidence of aneurysm. Oral contrast is present in the stomach and small bowel, which appears normal. Colon shows normal stool and gas pattern. There is diffuse thickening in the colon wall from the hepatic flexure throughout to the rectum. This is most prominent in the sigmoid colon. There are diverticuli though no evidence of focal diverticulitis. There is no free air. Uterus is not enlarged. Bladder appears normal. No intra-abdominal adenopathy. Scattered sclerotic bony lesions again noted predominately in the lumbar vertebral bodies without significant change since previous exam. IMPRESSION: 1. Diffuse thickening of the colon bowel wall raising concern of possible colitis. There is no free fluid or free air. 2. Sclerotic bony lesions again noted stable in appearance. 3. No new findings of metastatic disease demonstrated within the abdomen or pelvis. Dictated by: Dictated on workstation # [id number]
== END ==
LOC: RAD 08:00
PROVIDERS: ATTEND Internal Medicine Hematology & Oncology
DX: C34.2 Malignant neoplasm of middle lobe, bronchus or lung (principal)
CPT/HCPCS: 71260; 74178; Q9967

== ENCOUNTER → 2016-09-02 | Outpatient (REF) | payer MEDICARE ==
[2016-09-02 13:26] LABS: MEAN CORPUSCULAR HGB CONC 31.9 g/dL (31.0-37.0); MEAN PLATELET VOLUME 12.2 FL (6.0-9.5); WHITE BLOOD COUNT 2.26 10^3uL (4.0-11.0)
[2016-09-02 13:35] LABS: MEAN CORPUSCULAR HEMOGLOBIN 32.4 PG (26.0-34.0); MEAN CORPUSCULAR VOLUME 102 FL (80-100)
[2016-09-02 13:37] LABS: PLATELET COUNT 20 10^3uL (150-450)
[2016-09-02 13:38] LABS: ANISOCYTOSIS MODERATE; BAND NEUTROPHILS % 10 % (0-6); EOSINOPHILS % 0 % (0-4); LYMPHOCYTES # 0.3 #; MONOCYTES # 0.2 #; MONOCYTES % 10 % (3-11); RBC MORPH SEE REFERENCE (NORMAL); SEGMENTED NEUTROPHILS % 62 % (51-67); TOTAL CELLS COUNTED 100
== END ==
LOC: LAB 12:46
PROVIDERS: ATTEND Internal Medicine Hematology & Oncology
DX: C34.2 Malignant neoplasm of middle lobe, bronchus or lung (principal)
CPT/HCPCS: 85025

== ENCOUNTER → 2016-09-05 | Outpatient (REF) | payer MEDICARE ==
[2016-09-05 15:55] LABS: WHITE BLOOD COUNT 2.95 10^3uL (4.0-11.0)
[2016-09-05 16:06] LABS: MEAN CORPUSCULAR HEMOGLOBIN 32.1 PG (26.0-34.0); MEAN CORPUSCULAR HGB CONC 31.7 g/dL (31.0-37.0); MEAN CORPUSCULAR VOLUME 101 FL (80-100)
[2016-09-05 16:16] LABS: PLATELET COUNT 32 10^3uL (150-450)
[2016-09-05 16:18] LABS: BAND NEUTROPHILS % 7 % (0-6); EOSINOPHILS % 1 % (0-4); LYMPHOCYTES # 0.5 #; MONOCYTES # 0.2 #; MONOCYTES % 12 % (3-11); RBC MORPH SEE REFERENCE (NORMAL); SEGMENTED NEUTROPHILS % 62 % (51-67); TOTAL CELLS COUNTED 100
[2016-09-05 16:19] LABS: ANISOCYTOSIS MARKED; POLYCHROMASIA SLIGHT
== END ==
LOC: LAB 14:57
PROVIDERS: ATTEND Internal Medicine Hematology & Oncology
DX: C34.2 Malignant neoplasm of middle lobe, bronchus or lung (principal)
CPT/HCPCS: 85025

== ENCOUNTER → 2016-09-09 | Outpatient (REF) | payer MEDICARE ==
[2016-09-09 16:45] LABS: BASOPHILS % (AUTO) 0 % (0-2); EOSINOPHILS % (AUTO) 1 % (0-4); LYMPHOCYTES # (AUTO) 0.5 X10^3; MEAN CORPUSCULAR HGB CONC 32.3 g/dL (31.0-37.0); MEAN PLATELET VOLUME 11.4 FL (6.0-9.5); MONOCYTES # (AUTO) 0.5 X10^3; MONOCYTES % (AUTO) 14 % (3-11); NEUTROPHILS # (AUTO) 2.4 X10^3; NEUTROPHILS % (AUTO) 70 % (51-67); PLATELET COUNT 47 10^3uL (150-450); WHITE BLOOD COUNT 3.47 10^3uL (4.0-11.0)
[2016-09-09 16:51] LABS: MEAN CORPUSCULAR HEMOGLOBIN 33.3 PG (26.0-34.0); MEAN CORPUSCULAR VOLUME 103 FL (80-100)
== END ==
LOC: LAB 16:06
PROVIDERS: ATTEND Internal Medicine Hematology & Oncology
DX: C34.2 Malignant neoplasm of middle lobe, bronchus or lung (principal)
CPT/HCPCS: 85025

== ENCOUNTER → 2016-09-13 | Outpatient (CLI) | payer MEDICARE ==
[2016-09-13 14:57] LABS: MEAN CORPUSCULAR HGB CONC 31.8 g/dL (31.0-37.0); MEAN PLATELET VOLUME 11.2 FL (6.0-9.5); PLATELET COUNT 81 10^3uL (150-450); WHITE BLOOD COUNT 3.36 10^3uL (4.0-11.0)
[2016-09-13 14:59] LABS: MEAN CORPUSCULAR HEMOGLOBIN 33.3 PG (26.0-34.0); MEAN CORPUSCULAR VOLUME 105 FL (80-100)
[2016-09-13 15:30] LABS: BAND NEUTROPHILS % 1 % (0-6); SEGMENTED NEUTROPHILS % 70 % (51-67)
[2016-09-13 15:31] LABS: ANISOCYTOSIS MODERATE; EOSINOPHILS % 2 % (0-4); LYMPHOCYTES # 0.4 #; MONOCYTES # 0.4 #; MONOCYTES % 14 % (3-11); RBC MORPH SEE REFERENCE (NORMAL); TOTAL CELLS COUNTED 100
[2016-09-13 15:38] LABS: ALBUMIN 3.8 g/dL (3.4-5.0); ANION GAP 15.4 MEQ/L (3-15); CALCULATED IONIZED CALCIUM 4.2 mg/dL (3.8-4.6); TOTAL PROTEIN 6.5 g/dL (6.4-8.5)
[2016-09-13 22:19] LABS: IRON 64 ug/dL (50-170); UNBOUND IRON CONTENT 145 ug/dl (126-382)
[2016-09-13 22:58] LABS: VITAMIN B 12 >2000 pg/mL (213-816)
== END ==
LOC: LAB 14:35
PROVIDERS: ATTEND Internal Medicine Hematology & Oncology
DX: C34.2 Malignant neoplasm of middle lobe, bronchus or lung (principal); R53.83 Other fatigue; R06.09 Other forms of dyspnea
CPT/HCPCS: 36415; 80053; 82607; 82728; 82746; 83540; 83550; 84443; 85025

== ENCOUNTER → 2016-09-16 | Outpatient (REF) | payer MEDICARE ==
[2016-09-16 16:32] LABS: MEAN PLATELET VOLUME 11.2 FL (6.0-9.5); PLATELET COUNT 100 10^3uL (150-450); WHITE BLOOD COUNT 3.64 10^3uL (4.0-11.0)
[2016-09-16 16:55] LABS: ALBUMIN 3.7 g/dL (3.4-5.0); ANION GAP 14.6 MEQ/L (3-15); CALCULATED IONIZED CALCIUM 4.2 mg/dL (3.8-4.6); MAGNESIUM* 1.7 mg/dL (1.6-2.3)
[2016-09-16 17:24] LABS: MEAN CORPUSCULAR HEMOGLOBIN 33.1 PG (26.0-34.0); MEAN CORPUSCULAR HGB CONC 31.7 g/dL (31.0-37.0); MEAN CORPUSCULAR VOLUME 104 FL (80-100)
[2016-09-16 18:30] LABS: BAND NEUTROPHILS % 0 % (0-6); LYMPHOCYTES # 0.4 #; MONOCYTES # 0.4 #; MONOCYTES % 14 % (3-11); SEGMENTED NEUTROPHILS % 71 % (51-67)
[2016-09-16 18:31] LABS: ANISOCYTOSIS MODERATE; EOSINOPHILS % 2 % (0-4); RBC MORPH SEE REFERENCE (NORMAL); TOTAL CELLS COUNTED 100
== END ==
LOC: LAB 16:03
PROVIDERS: ATTEND Internal Medicine Hematology & Oncology
DX: C34.2 Malignant neoplasm of middle lobe, bronchus or lung (principal)
CPT/HCPCS: 80053; 83615; 83735; 84100; 85025

== ENCOUNTER → 2016-09-23 | Outpatient (REF) | payer MEDICARE ==
[2016-09-23 15:51] LABS: BASOPHILS % (AUTO) 0 % (0-2); EOSINOPHILS # (AUTO) 0.1 10^3uL; EOSINOPHILS % (AUTO) 2 % (0-4); LYMPHOCYTES # (AUTO) 0.7 X10^3; MEAN CORPUSCULAR HGB CONC 31.8 g/dL (31.0-37.0); MEAN PLATELET VOLUME 10.8 FL (6.0-9.5); MONOCYTES # (AUTO) 0.5 X10^3; MONOCYTES % (AUTO) 12 % (3-11); NEUTROPHILS # (AUTO) 3.2 X10^3; NEUTROPHILS % (AUTO) 71 % (51-67); PLATELET COUNT 128 10^3uL (150-450); WHITE BLOOD COUNT 4.46 10^3uL (4.0-11.0)
[2016-09-23 15:54] LABS: MEAN CORPUSCULAR HEMOGLOBIN 33.1 PG (26.0-34.0); MEAN CORPUSCULAR VOLUME 104 FL (80-100)
== END ==
LOC: LAB 15:29
PROVIDERS: ATTEND Internal Medicine Hematology & Oncology
DX: C34.2 Malignant neoplasm of middle lobe, bronchus or lung (principal)
CPT/HCPCS: 85025